=== PATIENT | male | born 1945 ===

== ENCOUNTER 2018-01-26 15:29 | Inpatient (IN) | payer MEDICARE ==
[2018-01-26] MEDS ORDERED: Labetalol 25mg/5ml Syringe IVP STA (15:42)
[2018-01-26] MEDS ORDERED: Sodium Chloride 0.9% 1,000 ML IV SCH (15:45)
--- NOTE | 2018-01-26 15:46 | C.PDOC ---
History Of Present Illness <NickAzul P - Last Filed: 01/26/18 18:23> <Azul Argueta J - Last Filed: 01/30/18 15:28> PGY-[address] Argueta. Patient is a 73 year old male with PMHx of DM, HTN, and HLD who presents to ED complaining of left sided weakness and slurred speech that began suddenly at 1: 30pm. Associated symptoms include dizziness that has since resolved. Denies change in vision, change in hearing, headache, chest pain, shortness of breath, nausea, vomiting, fever, chills, and urinary symptoms. Patient denies prior CVA. Patient takes daily aspirin. Denies anti-coagulant use. (Azul Romero) <Azul Romero P - Last Filed: 01/26/18 18:23> <Azul Argueta J - Last Filed: 01/30/18 15:28> Time Seen by Provider: 01/26/18 15:32 Chief Complaint (Nursing): Weakness/Neurological Deficit Past Medical History Family History: States: Unknown Family Hx <NickAzul Arredondo - Last Filed: 01/26/18 18:23> Vital Signs: Last Vital Signs Temp 98.3 F 01/30/18 12:00 Pulse 69 01/30/18 12:00 Resp 16 01/30/18 12:00 BP 171/98 H 01/30/18 11:20 Pulse Ox 99 01/30/18 08:00 Review Of Systems Constitutional: Negative for: Fever, Chills, Sweats Eyes: Negative for: Vision Change Cardiovascular: Negative for: Chest Pain, Palpitations, Orthopnea Respiratory: Negative for: Cough, Shortness of Breath Gastrointestinal: Negative for: Nausea, Vomiting, Abdominal Pain Genitourinary: Negative for: Dysuria, Frequency Neurological: Positive for: Weakness (LUE and LLE), Change in Speech (slurred speech), Dizziness. Negative for: Confusion, Seizures, Headache <Azul Romero - Last Filed: 01/26/18 18:23> Physical Exam - Physical Exam Appears: In Acute Distress (with L sided weakness) Skin: Normal Color, Warm, Dry, No Diaphoretic Head: Atraumatic, Normacephalic Tongue: Normal Appearing Throat: Normal Neck: Normal, Normal ROM Chest: Symmetrical Cardiovascular: Rhythm Regular, No Murmur Respiratory: Normal Breath Sounds, No Rales, No Rhonchi, No Wheezing Gastrointestinal/Abdominal: Bowel Sounds, Soft, No Tenderness, No Guarding, No Rebound Extremity: No Normal ROM (LUE and LLE weakness), No Tenderness, No Pedal Edema, Other (4.5cm x 3cm would to medial R ankle) Neurological/Psych: Oriented x3, No Normal Speech (dysarthria), Normal Cognition , No Normal Cranial Nerves (decreased sensation to trigeminal nerve distribution on L, otherwise normal), No Normal Motor (LUE and LLE weakness) <Azul Romero P - Last Filed: 01/26/18 18:23> ED Course And Treatment - Laboratory Results Result Diagrams: 01/26/18 15:43 01/26/18 15:43 <Azul Romero P - Last Filed: 01/26/18 18:23> - Laboratory Results Result Diagrams: 01/30/18 06:07 01/30/18 06:07 <Azul Argueta J - Last Filed: 01/30/18 15:28> NIHSS Stroke Scale 2 - Date/Time Evaluation Performed Date Performed: 01/26/18 Time Performed: 15:30 When Was NIHSS Performed: Baseline - How Severe is the Stroke Level of Consciousness: 0=Alert LOC to Questions: 0=Both comments correct LOC to commands: 0=Obeys both correctly Best Gaze: 0=Normal Visual: 0=No visual loss Facial: 2=Partial (lower face paralysis) Motor Arm - Left: 2=Falls before 10 sec Motor Arm - Right: 0=No drift Motor Leg - Left: 2=Falls before 5 sec Motor Leg - Right: 0=No drift Limb Ataxia: 0=Absent Sensory: 1=Mild to moderate loss Best Language: 0=No aphasia Dysarthia: 1=Mild to moderate slurring Extinction & Inattention (Neglect): 0=Normal, no object Score: 8 <Azul Romero P - Last Filed: 01/26/18 18:23> NIHSS Stroke Scale 3 - Date/Time Evaluation Performed Date Performed: 01/26/18 Time Performed: 17:30 When Was NIHSS Performed: Post tPA - How Severe is the Stroke Level of Consciousness: 0=Alert LOC to Questions: 0=Both comments correct LOC to commands: 0=Obeys both correctly Best Gaze: 0=Normal Visual: 0=No visual loss Facial: 1=Minor asymmetry Motor Arm - Left: 0=No drift Motor Arm - Right: 0=No drift Motor Leg - Left: 2=Falls before 5 sec Motor Leg - Right: 0=No drift Limb Ataxia: 0=Absent Sensory: 0=Normal Best Language: 0=No aphasia Dysarthia: 1=Mild to moderate slurring Extinction & Inattention (Neglect): 0=Normal, no object Score: 4 <Azul Romero P - Last Filed: 01/26/18 18:23> rTPA Inclusion/Exclusion - Refusal of Treatment Patient Refused Treatment: No - Inclusion Criteria for Altepase Patient is 18 years or Older: Yes The Clinical Diagnosis of Ischemic Stroke That is Causing a Potentially Disabling Neurological Deficit: Yes Time of Onset is Well Established to be Less Than 270 Minute Before Treatment Would Begin: Yes Risk/Benefit Discussed With Patient/Family Member Present: Yes - Exclusion Criteria for Altepase Uncontrolled Hypertension at Time of Treatment (Systolic BP above 185 or Diastolic BP above 110 mmHg): No <Azul Romero P - Last Filed: 01/26/18 18:23> - Exclusion Criteria for Altepase Uncontrolled Hypertension at Time of Treatment (Systolic BP above 185 or Diastolic BP above 110 mmHg): Yes Active Internal Bleeding: No Known Bleeding Diathesis Including but Not Limited to: Platelets Below 100,000/ mm,PTT Above 40 sec After Heparin Use, Current Use of Oral Anitcoagulant With INR Greater Than 1.7 or PT Greater Than 15 secs: No Evidence of an Intracranial Hemorrhage: No Evidence of Major Acute Infarct With Signs Greater Than 1/3 MCA Territory: No Suspicion of Subarachnoid Hemorrhage on Pretreatment Evaluation Even if CT Head Negative For Hemorrhage: No <Azul Argueta J - Last Filed: 01/30/18 15:28> Supervising Attending Note <Azul Romero P - Last Filed: 01/26/18 18:23> - Supervising Attending Note The Documented history was done by the: Physician Loft Worker Head, Attending Physician The documented physical exam was done by the: Physician Loft Worker Head, Attending Physician - Attestation: I have personally seen and examined this patient.: Yes I have fully participated in the care of the patient.: Yes I have reviewed all pertinent clinical information, including history, physical exam and plan: Yes <Azul Argueta - Last Filed: 01/30/18 15:28> - Notes: Notes:: DW Dr Alejandra on arrival. Recommended prep thrombolytics. Labetalol ordered to control BP. CT demonstrated no hemorrhage BP wnl and alteplase given after risk/benefits discussed and verbal consent given. 1 hour later: improvement of symptoms. Cardene initiated to [facility] BP control Per Dr Alejandra, no further vascular intervention by neurointerventionalist. DW Dr Calzada, Dr Buchanan, Dr Horne ICU. (Azul Argueta) Critical Care Time - Critical Care Note Total Time (in mins): 45 Documented critical care: time excludes all time spent performing seperately billable procedures. <Azul Argueta - Last Filed: 01/30/18 15:28> Medical Decision Making: Plan: Code Stroke called for patient CBC, CMP Lipid panel Hgb A1C Troponin PT/INR, PTT CT head without contrast CXR EKG IVF 15:[address] Alejandra, neurologist. 15:[address] Calzada, PMD. Dr. Buchanan will accept admission. 15:[address] w/o contrast: No intracranial hemorrhage or mass effect. (see full report) 16:16 Alteplase administered. (Azul Romero) Disposition Discussed With .: Abdoul Buchanan Doctor Will See Patient In The: Hospital - Disposition Disposition Time: 15:50 <Azul Romero - Last Filed: 01/26/18 18:23> Counseled Patient/Family Regarding: Studies Performed, Diagnosis - POA Present On Arrival: Falls Or Trauma (risk) Core Measure Indicators: Code Stroke <Azul Argueta - Last Filed: 01/30/18 15:28> - Disposition Disposition: HOSPITALIZED Condition: CRITICAL - Clinical Impression Clinical Impression: CVA (cerebral vascular accident)
[2018-01-26 15:48] LABS: BASO % 0.6 % (0.0-2.0); EOS % 0.5 % (0.0-4.0); HEMOGLOBIN 11.7 g/dL (12.0-18.0); LYMPH # 1.6 K/uL (1.0-4.3); LYMPH % 20.1 % (20.0-40.0); MEAN CELL VOLUME 74.2 fL (80.0-94.0); MEAN CORPUSCULAR HEMOGLOBIN 24.6 pg (27.0-31.0); MEAN CORPUSCULAR HGB CONC 33.1 g/dL (33.0-37.0); MEAN PLATELET VOLUME 8.4 fL (7.2-11.7); MONO # 0.8 K/uL (0.0-0.8); MONO % 10.1 % (0.0-10.0); NEUT # 5.4 K/uL (1.8-7.0); NEUT % 68.7 % (50.0-75.0); RBC 4.76 Mil/uL (4.40-5.90); RED CELL DISTRIBUTION WIDTH 15.7 % (11.5-14.5); WHITE BLOOD COUNT 7.8 K/uL (4.8-10.8)
--- NOTE | 2018-01-26 15:51 | C.PDOC ---
Time Seen by Provider: 01/26/18 15:32 Chief Complaint (Nursing): Weakness/Neurological Deficit Disposition - Disposition
[2018-01-26 15:54] VITALS: BMI 30.5
[2018-01-26] MEDS ORDERED: Iodixanol 320 mg/ml 150 ml Bottle IV ONE (15:56)
[2018-01-26 15:57] LABS: INR 1.3; PROTHROMBIN TIME 13.9 SECONDS (9.7-12.2)
--- NOTE | 2018-01-26 15:57 | CT ---
Date of service: 01/26/2018 PROCEDURE: CT HEAD WITHOUT CONTRAST. HISTORY: Code Stroke COMPARISON: NonePACs refer available. TECHNIQUE: Axial computed tomography images were obtained through the head/brain without intravenous contrast. Radiation dose: Total exam DLP = 1146 mGy-cm. This CT exam was performed using one or more of the following dose reduction techniques: Automated exposure control, adjustment of the mA and/or kV according to patient size, and/or use of iterative reconstruction technique. FINDINGS: HEMORRHAGE: No intracranial hemorrhage. BRAIN: No mass effect or edema. There is generalized cerebral atrophy. A few small hypodensities right temporal lobe lacunar infarcts with or without benign perivascular spaces are compatible with this. VENTRICLES: Unremarkable. No hydrocephalus. CALVARIUM: Unremarkable. PARANASAL SINUSES: Unremarkable as visualized. No significant inflammatory changes. MASTOID AIR CELLS: Unremarkable as visualized. No inflammatory changes. OTHER FINDINGS: None. IMPRESSION: No intracranial hemorrhage or mass effect. Mild cerebral atrophy. Probable minimal microvascular ischemic changes as above.
[2018-01-26] MEDS ORDERED: ALTEPLASE IVPB ONE (16:00)
[2018-01-26] MEDS ORDERED: WATER FOR INJECTION IVPB ONE (16:00)
[2018-01-26 16:04] LABS: ALB/GLOB RATIO 1.3 (1.0-2.1); ALBUMIN 4.5 g/dL (3.5-5.0); BLOOD UREA NITROGEN 19 mg/dL (9-20); CALCIUM 9.9 mg/dl (8.6-10.4); GFR NON-AFRICAN AMERICAN > 60; HDL CHOLESTEROL 37 mg/dL (30-70)
[2018-01-26] MEDS ORDERED: Sodium Chloride 0.9% 1,000 ML ONE (16:08)
[2018-01-26 16:14] LABS: LDL CHOLESTEROL 77 mg/dL (0-129)
[2018-01-26 16:16] LABS: ALT/SGPT 13 U/L (21-72); AST/SGOT 21 U/L (17-59)
--- NOTE | 2018-01-26 16:30 | CP.PCM.CON ---
<Martin Ramirez - Last Filed: 01/26/18 16:56> History of Present Illness - History of Present Illness History of Present Illness: Critical Care Consult Note: Left sided weakness and slurred speech 73 M with PMHx of DM, HTN, and HLD presents to ED complaining of left sided weakness and slurred speech. Patient states that his symptoms first started at 1 :30pm aprox less than 2 hours from arrival. The episode was witnessed and the patient was fine prior to his L weakness and slurr speach. Patient denies falling down or hitting his head. In the ED code stroke was called and patient went for stat CT head which did not show any intracranial hemorrhage or mass effect. Patient was with in the time frame for TPA which was administered in the ED. ICU consulted for close observation following TPA. 12 Point ROS limited 2/2 mild dysarthria Review of Systems - Review of Systems All systems: reviewed and no additional remarkable complaints except Past Patient History - Past Social History Smoking Status: x - CARDIAC Hx Cardiac Disorders: Yes Hx Hypertension: Yes - PSYCHIATRIC Hx Substance Use: No Meds Allergies/Adverse Reactions: Allergies Allergy/AdvReac Type Severity Reaction Status Date / Time No Known Allergies Allergy Verified 01/26/18 15:37 - Medications Medications: Current Medications Sodium Chloride (Sodium Chloride 0.9%) 1,000 mls @ 100 mls/hr IV .Q10H ASHLEE Alteplase, Recombinant 82 mg/ (Sterile Water) 82 mls @ 82 mls/hr IVPB ONCE ONE Stop: 01/26/18 16:59 Physical Exam - Constitutional Appears: No Acute Distress - Head Exam Head Exam: ATRAUMATIC, NORMOCEPHALIC - Eye Exam Eye Exam: EOMI, PERRL Pupil Exam: NORMAL ACCOMODATION - ENT Exam ENT Exam: Mucous Membranes Moist - Respiratory Exam Respiratory Exam: Clear to Auscultation Bilateral. absent: Rales, Wheezes - Cardiovascular Exam Cardiovascular Exam: REGULAR RHYTHM, RRR, +S1, +S2 - GI/Abdominal Exam GI & Abdominal Exam: Normal Bowel Sounds, Soft. absent: Tenderness - Extremities Exam Extremities exam: Negative for: calf tenderness, pedal edema Additional comments: L sided upper and lower ext diminished motor strength 3/5 bilaterally. Dysarthric speech. L sided facial droop - Neurological Exam Neurological exam: Alert, Oriented x3 Additional comments: L sided upper and lower ext diminished motor strength 3/5 bilaterally. Dysarthric speech. L sided facial droop - Psychiatric Exam Psychiatric exam: Normal Mood - Skin Skin Exam: Dry, Warm Results - Vital Signs Recent Vital Signs: Last Vital Signs Temp 98.9 F 01/26/18 15:32 Pulse 79 01/26/18 15:41 Resp 18 01/26/18 15:41 BP 197/114 H 01/26/18 15:41 Pulse Ox 99 01/26/18 15:32 - Labs Result Diagrams: 01/26/18 15:43 01/26/18 15:43 Labs: Laboratory Results - last 24 hr 01/26/18 01/26/18 01/26/18 15:30 15:43 15:43 WBC 7.8 RBC 4.76 Hgb 11.7 L Hct 35.3 MCV 74.2 L MCH 24.6 L MCHC 33.1 RDW 15.7 H Plt Count 302 MPV 8.4 Neut % (Auto) 68.7 Lymph % (Auto) 20.1 [place] % (Auto) 10.1 H Eos % (Auto) 0.5 Baso % (Auto) 0.6 Neut # (Auto) 5.4 Lymph # (Auto) 1.6 [place] # (Auto) 0.8 Eos # (Auto) 0.0 Baso # (Auto) 0.0 PT 13.9 H INR 1.3 APTT 41 H Sodium Potassium Chloride Carbon Dioxide Anion Gap BUN Creatinine Est GFR ( Amer) Est GFR (Non-Af Amer) POC Glucose (mg/dL) 103 Random Glucose Hemoglobin A1c Calcium Total Bilirubin AST ALT Alkaline Phosphatase Troponin I Total Protein Albumin Globulin Albumin/Globulin Ratio Triglycerides Cholesterol LDL Cholesterol Direct HDL Cholesterol Blood Type 01/26/18 01/26/18 01/26/18 15:43 15:43 15:43 WBC RBC Hgb Hct MCV MCH MCHC RDW Plt Count MPV Neut % (Auto) Lymph % (Auto) [place] % (Auto) Eos % (Auto) Baso % (Auto) Neut # (Auto) Lymph # (Auto) [place] # (Auto) Eos # (Auto) Baso # (Auto) PT INR APTT Sodium 140 Potassium 4.1 Chloride 104 Carbon Dioxide 22 Anion Gap 18 BUN 19 Creatinine 0.8 Est GFR ( Amer) > 60 Est GFR (Non-Af Amer) > 60 POC Glucose (mg/dL) Random Glucose 117 H Hemoglobin A1c 5.7 Calcium 9.9 Total Bilirubin 0.5 AST 21 ALT 13 L Alkaline Phosphatase 116 Troponin I 0.0140 Total Protein 8.1 Albumin 4.5 Globulin 3.6 Albumin/Globulin Ratio 1.3 Triglycerides 84 Cholesterol 140 LDL Cholesterol Direct 77 HDL Cholesterol 37 Blood Type O POSITIVE Assessment & Plan - Assessment and Plan (Free Text) Assessment: 73 M with PMHx of DM, HTN, and HLD presents to ED complaining of left sided weakness and slurred speech. Code stroke called and patient was candidate for TPA. ICU consulted for close observation following TPA. Neuro: - Neuro check Q2H - CT head showed no acute hemorrhage - CT head and neck pending official read - will follow up regarding if patient is candidate for thrombectomy - Repeat Head CT in the morning - F/u neurology recs - NIHS as needed - PT/OT Pulm: - Stable - Nasal cannula as needed CV: - Maintain MAP > 65 - maintain BP <180/105 for post TPA - Labatolol / Cardene as needed to maintain BP <180/105 - Cont to monitor GI: - NPO - ppx with pepcid - Swallow evaluation Heme: - Monitor H/H - No active bleeding at this time - Cont to monitor Renal: - Monitor I and O - Replete electrolytes as needed ID: - Afebrile and no leukocytosis - No sign of infection - Cont to monitor off of abx Endo: - maintain blood sugars 140-180 GI/DVT ppx Case and plan was reviewed and discussed in detail with Dr Horne. <Zeyad Horne - Last Filed: 01/26/18 18:49> Meds - Medications Medications: Current Medications Famotidine (Pepcid) 20 mg PO BID ASHLEE Sodium Chloride (Sodium Chloride 0.9%) 1,000 mls @ 100 mls/hr IV .Q10H ASHLEE Nicardipine HCl 25 mg/ Sodium (Chloride) 250 mls @ 50 mls/hr IV .Q5H STA; 5 MG/ HR PRN Reason: Protocol Stop: 01/26/18 21:46 Last Titration: 01/26/18 17:55 Dose: 5 mg/hr, 50 mls/hr Results - Vital Signs Recent Vital Signs: Last Vital Signs Temp 98.9 F 01/26/18 15:32 Pulse 71 01/26/18 17:55 Resp 18 01/26/18 17:55 BP 185/101 H 01/26/18 17:55 Pulse Ox 99 01/26/18 17:55 - Labs Result Diagrams: 01/26/18 15:43 01/26/18 15:43 Labs: Laboratory Results - last 24 hr 01/26/18 01/26/18 01/26/18 15:30 15:43 15:43 WBC 7.8 RBC 4.76 Hgb 11.7 L Hct 35.3 MCV 74.2 L MCH 24.6 L MCHC 33.1 RDW 15.7 H Plt Count 302 MPV 8.4 Neut % (Auto) 68.7 Lymph % (Auto) 20.1 [place] % (Auto) 10.1 H Eos % (Auto) 0.5 Baso % (Auto) 0.6 Neut # (Auto) 5.4 Lymph # (Auto) 1.6 [place] # (Auto) 0.8 Eos # (Auto) 0.0 Baso # (Auto) 0.0 PT 13.9 H INR 1.3 APTT 41 H Sodium Potassium Chloride Carbon Dioxide Anion Gap BUN Creatinine Est GFR ( Amer) Est GFR (Non-Af Amer) POC Glucose (mg/dL) 103 Random Glucose Hemoglobin A1c Calcium Total Bilirubin AST ALT Alkaline Phosphatase Troponin I Total Protein Albumin Globulin Albumin/Globulin Ratio Triglycerides Cholesterol LDL Cholesterol Direct HDL Cholesterol Blood Type Antibody Screen 01/26/18 01/26/18 01/26/18 15:43 15:43 15:43 WBC RBC Hgb Hct MCV MCH MCHC RDW Plt Count MPV Neut % (Auto) Lymph % (Auto) [place] % (Auto) Eos % (Auto) Baso % (Auto) Neut # (Auto) Lymph # (Auto) [place] # (Auto) Eos # (Auto) Baso # (Auto) PT INR APTT Sodium 140 Potassium 4.1 Chloride 104 Carbon Dioxide 22 Anion Gap 18 BUN 19 Creatinine 0.8 Est GFR ( Amer) > 60 Est GFR (Non-Af Amer) > 60 POC Glucose (mg/dL) Random Glucose 117 H Hemoglobin A1c 5.7 Calcium 9.9 Total Bilirubin 0.5 AST 21 ALT 13 L Alkaline Phosphatase 116 Troponin I 0.0140 Total Protein 8.1 Albumin 4.5 Globulin 3.6 Albumin/Globulin Ratio 1.3 Triglycerides 84 Cholesterol 140 LDL Cholesterol Direct 77 HDL Cholesterol 37 Blood Type O POSITIVE Antibody Screen Negative Attending/Attestation - Attestation I have personally seen and examined this patient.: Yes I have fully participated in the care of the patient.: Yes I have reviewed all pertinent clinical information: Yes Notes (Text): 01/26/18 18:17 I have seen and examined the patient. Medical records, lab studies, and imaging were reviewed by me and a management plan was formulated on multidisciplinary rounds with resident Dr. Ramirez. I agree with their documented assessment and plan. Patient received tPA at ~1616. Admitting to ICU for neuro checks. Continue cardene drip to maintain BP <180/105. Critical Care Time 35 minutes. The documented time is cumulative and includes review of patient data/exams/labs /chart review and examination of the patient on rounds and throughout the day; time is exclusive of any procedures or teaching time.
[2018-01-26] MEDS ORDERED: niCARdipine IV 25 MG in Sodium Chloride 0.9% 240 ML IV STA (16:47)
[2018-01-26] MEDS ORDERED: niCARdipine IV 25 MG in Sodium Chloride 0.9% 240 ML IV SCH (17:00)
--- NOTE | 2018-01-26 18:38 | RAD ---
HISTORY: Code Stroke COMPARISON: None available. TECHNIQUE: Chest, one view. FINDINGS: Examination limited by habitus. LUNGS: Mild pulmonary venous congestion. No focal consolidation. Please note that chest x-ray has limited sensitivity for the detection of pulmonary masses. PLEURA: No significant pleural effusion identified. No definite pneumothorax . CARDIOVASCULAR: Enlargement of the cardiomediastinal silhouette. Atherosclerotic calcifications of the aorta. OSSEOUS STRUCTURES: Degenerative changes. VISUALIZED UPPER ABDOMEN: Unremarkable. OTHER FINDINGS: None. IMPRESSION: Enlargement of the cardiomediastinal silhouette. Mild pulmonary venous congestion.
[2018-01-26] MEDS: Sodium Chloride 0.9% 1,000 ML IV SCH (18:48)
--- NOTE | 2018-01-26 20:29 | CP.PCM.HP ---
History of Present Illness - History of Present Illness History of Present Illness: Chief complaint: Left-sided weakness, slurred speech. HPI: 73-year-old male with history of hypertension diabetes hyperlipidemia and also chronic right leg ulcer came to the emergency room with sudden onset of left- sided weakness and slurred speech. According to the family patient started having symptoms around 1:30 PM, 2 hours prior to the arrival to the emergency room. Code stroke was called in the emergency room, and immediately TPA was given, currently patient post TPA management in the intensive care unit. Patient is now able to speak. He is still having some minimal weakness in the left side. Complaining of no pain. Denies any chest pain shortness of breath or headache. Past medical history: Hypertension chronic fairly controlled Hyperlipidemia on medications. Diabetes and also diabetic retinopathy Chronic right leg ulcer, being managed by the PMD, awaiting for surgical evaluation Allergies no known drug allergy Personal history: , No alcohol now. Patient is a non-smoker Family history significant for CAD and hypertension Review of system: Patient is having no headache. Diabetic retinopathy No chest pain or shortness of breath. No nausea no vomiting. Left-sided weakness noted On examination: Blood pressure was noted to be elevated Chest bilateral good air entry Regular heart sound noted Nontender abdomen. Extremities no pedal edema Patient has a chronic right leg nonhealing ulcer noted Assessment: Patient is a 74-year-old male with a history of chronic diabetes, hypertension, diabetic related complication including neuropathy, retinopathy. Patient admitted with acute CVA involving the left side of the body. Associated with the slurred speech. Status post DTPA. Neurological watch now. Plan recommendation: Patient will be monitored closely in the intensive care unit for. Neurological watch. Swallow evaluation. We will get a cardiology, vascular evaluation for the ongoing illness. Patient will be receiving his antihypertensives, antiplatelets as well as anti- lipidemia management. Physical therapy. We will continue the current treatment. DVT and GI prophylaxis and will will follow-up the patient Present on Admission - Present on Admission Any Indicators Present on Admission: No History of DVT/PE: No History of Uncontrolled Diabetes: No Urinary Catheter: No Decubitus Ulcer Present: No Past Patient History - Past Medical History & Family History Past Medical History?: Yes - Past Social History Smoking Status: Never Smoked - CARDIAC Hx Cardiac Disorders: Yes Hx Hypertension: Yes - PSYCHIATRIC Hx Substance Use: No Meds Allergies/Adverse Reactions: Allergies Allergy/AdvReac Type Severity Reaction Status Date / Time No Known Allergies Allergy Verified 01/26/18 15:37 Results - Vital Signs Recent Vital Signs: Last Vital Signs Temp 97.2 F L 01/26/18 19:15 Pulse 96 H 01/26/18 19:40 Resp 14 01/26/18 19:40 BP 173/105 H 01/26/18 19:30 Pulse Ox 100 01/26/18 19:40 - Labs Result Diagrams: 01/27/18 06:31 01/27/18 06:31 Labs: Laboratory Results - last 24 hr 01/26/18 01/26/18 01/26/18 15:30 15:43 15:43 WBC 7.8 RBC 4.76 Hgb 11.7 L Hct 35.3 MCV 74.2 L MCH 24.6 L MCHC 33.1 RDW 15.7 H Plt Count 302 MPV 8.4 Neut % (Auto) 68.7 Lymph % (Auto) 20.1 [place] % (Auto) 10.1 H Eos % (Auto) 0.5 Baso % (Auto) 0.6 Neut # (Auto) 5.4 Lymph # (Auto) 1.6 [place] # (Auto) 0.8 Eos # (Auto) 0.0 Baso # (Auto) 0.0 PT 13.9 H INR 1.3 APTT 41 H Sodium Potassium Chloride Carbon Dioxide Anion Gap BUN Creatinine Est GFR ( Amer) Est GFR (Non-Af Amer) POC Glucose (mg/dL) 103 Random Glucose Hemoglobin A1c Calcium Total Bilirubin AST ALT Alkaline Phosphatase Troponin I Total Protein Albumin Globulin Albumin/Globulin Ratio Triglycerides Cholesterol LDL Cholesterol Direct HDL Cholesterol Blood Type Antibody Screen 01/26/18 01/26/18 01/26/18 15:43 15:43 15:43 WBC RBC Hgb Hct MCV MCH MCHC RDW Plt Count MPV Neut % (Auto) Lymph % (Auto) [place] % (Auto) Eos % (Auto) Baso % (Auto) Neut # (Auto) Lymph # (Auto) [place] # (Auto) Eos # (Auto) Baso # (Auto) PT INR APTT Sodium 140 Potassium 4.1 Chloride 104 Carbon Dioxide 22 Anion Gap 18 BUN 19 Creatinine 0.8 Est GFR ( Amer) > 60 Est GFR (Non-Af Amer) > 60 POC Glucose (mg/dL) Random Glucose 117 H Hemoglobin A1c 5.7 Calcium 9.9 Total Bilirubin 0.5 AST 21 ALT 13 L Alkaline Phosphatase 116 Troponin I 0.0140 Total Protein 8.1 Albumin 4.5 Globulin 3.6 Albumin/Globulin Ratio 1.3 Triglycerides 84 Cholesterol 140 LDL Cholesterol Direct 77 HDL Cholesterol 37 Blood Type O POSITIVE Antibody Screen Negative
[2018-01-26] MEDS: niCARdipine IV 25 MG in Sodium Chloride 0.9% 240 ML IV PRN (23:04)
--- NOTE | 2018-01-27 01:18 | CP.PCM.CON ---
History of Present Illness - History of Present Illness History of Present Illness: 73 yr old male who has a pmh of DM, HTN, and HLD who presents to ED complaining of left sided weakness and slurred speech that began suddenly at 1: 30pm. Associated symptoms include dizziness that has since resolved. Denies change in vision, change in hearing, headache, chest pain, shortness of breath, nausea, vomiting, fever, chills, and urinary symptoms. Patient denies prior CVA. Patient takes daily aspirin. Denies anti-coagulant use. Code stroke was called and patient was assessed shortly thereafter by myself and residents. He was found to have an NIHSS of 7, with mild aphasia, left upper limbweakness at 3 /5, purchasing internship of 2/5, left sided neglect, left lower limb weakness at 4/5. CT scan was done and did not show an acute stroke, and labs were normal. Based on time of onset, patient was determined to be a TPA candidate. He was hypertensive at about 200/110, and he was given several doses of labetalol. TPA was given at 4:15, and patient improved to the point where he was able to give me a 4-/5 purchasing internship on his left hand and lift his arm without significant drift. In addition, his left sided facial droop improved significantly. He was admitted to the ICU for monitoring. ROS; unable to obtain. NIHSS: 7 On exam: awake, alert, not oriented. PERRL. Can name simple objects but with dysarthria. Left sided facial droop. LEft arm: 3/5, purchasing internship: 2/5, left leg 4/5. Both arm and leg on left side show drift. There is sensory extinction of the left side and some neglect. Right arm and leg are strong. Sensory exam is not accurate. Dtr: +3 all extremities, Toes downgoing. no clonus. Past Patient History - Past Medical History & Family History Past Medical History?: Yes - Past Social History Smoking Status: Never Smoked - CARDIAC Hx Cardiac Disorders: Yes Hx Hypertension: Yes - MUSCULOSKELETAL/RHEUMATOLOGICAL Hx Falls: Yes - PSYCHIATRIC Hx Substance Use: No Meds Allergies/Adverse Reactions: Allergies Allergy/AdvReac Type Severity Reaction Status Date / Time No Known Allergies Allergy Verified 01/26/18 15:37 - Medications Medications: Current Medications Famotidine (Pepcid) 20 mg PO BID ASHLEE Last Admin: 01/26/18 18:34 Dose: Not Given Sodium Chloride (Sodium Chloride 0.9%) 1,000 mls @ 75 mls/hr IV .[id number] [facility] Last Admin: 01/26/18 18:48 Dose: 75 mls/hr Nicardipine HCl 25 mg/ Sodium (Chloride) 250 mls @ 50 mls/hr IV .Q5H PRN; 5 MG/ HR PRN Reason: Protocol Last Titration: 01/27/18 00:20 Dose: 5 mg/hr, 50 mls/hr Rosuvastatin Calcium (Crestor) 10 mg PO HS [facility] Last Admin: 01/26/18 21:06 Dose: Not Given Results - Vital Signs Recent Vital Signs: Last Vital Signs Temp 97.7 F 01/26/18 22:15 Pulse 75 01/27/18 00:26 Resp 19 01/27/18 00:26 BP 153/88 H 01/27/18 00:26 Pulse Ox 98 01/27/18 00:26 - Labs Result Diagrams: 01/26/18 15:43 01/26/18 15:43 Labs: Laboratory Results - last 24 hr 01/26/18 01/26/18 01/26/18 15:30 15:43 15:43 WBC 7.8 RBC 4.76 Hgb 11.7 L Hct 35.3 MCV 74.2 L MCH 24.6 L MCHC 33.1 RDW 15.7 H Plt Count 302 MPV 8.4 Neut % (Auto) 68.7 Lymph % (Auto) 20.1 [place] % (Auto) 10.1 H Eos % (Auto) 0.5 Baso % (Auto) 0.6 Neut # (Auto) 5.4 Lymph # (Auto) 1.6 [place] # (Auto) 0.8 Eos # (Auto) 0.0 Baso # (Auto) 0.0 PT 13.9 H INR 1.3 APTT 41 H Sodium Potassium Chloride Carbon Dioxide Anion Gap BUN Creatinine Est GFR ( Amer) Est GFR (Non-Af Amer) POC Glucose (mg/dL) 103 Random Glucose Hemoglobin A1c Calcium Total Bilirubin AST ALT Alkaline Phosphatase Troponin I Total Protein Albumin Globulin Albumin/Globulin Ratio Triglycerides Cholesterol LDL Cholesterol Direct HDL Cholesterol Blood Type Antibody Screen 01/26/18 01/26/18 01/26/18 15:43 15:43 15:43 WBC RBC Hgb Hct MCV MCH MCHC RDW Plt Count MPV Neut % (Auto) Lymph % (Auto) [place] % (Auto) Eos % (Auto) Baso % (Auto) Neut # (Auto) Lymph # (Auto) [place] # (Auto) Eos # (Auto) Baso # (Auto) PT INR APTT Sodium 140 Potassium 4.1 Chloride 104 Carbon Dioxide 22 Anion Gap 18 BUN 19 Creatinine 0.8 Est GFR ( Amer) > 60 Est GFR (Non-Af Amer) > 60 POC Glucose (mg/dL) Random Glucose 117 H Hemoglobin A1c 5.7 Calcium 9.9 Total Bilirubin 0.5 AST 21 ALT 13 L Alkaline Phosphatase 116 Troponin I 0.0140 Total Protein 8.1 Albumin 4.5 Globulin 3.6 Albumin/Globulin Ratio 1.3 Triglycerides 84 Cholesterol 140 LDL Cholesterol Direct 77 HDL Cholesterol 37 Blood Type O POSITIVE Antibody Screen Negative 01/26/18 23:58 WBC RBC Hgb Hct MCV MCH MCHC RDW Plt Count MPV Neut % (Auto) Lymph % (Auto) [place] % (Auto) Eos % (Auto) Baso % (Auto) Neut # (Auto) Lymph # (Auto) [place] # (Auto) Eos # (Auto) Baso # (Auto) PT INR APTT Sodium Potassium Chloride Carbon Dioxide Anion Gap BUN Creatinine Est GFR ( Amer) Est GFR (Non-Af Amer) POC Glucose (mg/dL) 78 Random Glucose Hemoglobin A1c Calcium Total Bilirubin AST ALT Alkaline Phosphatase Troponin I Total Protein Albumin Globulin Albumin/Globulin Ratio Triglycerides Cholesterol LDL Cholesterol Direct HDL Cholesterol Blood Type Antibody Screen Assessment & Plan - Assessment and Plan (Free Text) Assessment: CTA head: shows 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 Echo: pending. CT head: no acute stroke. A/p: 73 yr old s/p TPA at 4:16 pm who is now stable and admitted to the ICu for monitoring. Plan: 1. keep blood pressure systolic 150-[address] head in am. 3. MRI brain without contrast 4. no anticoagulants for 72 hours 5. DVT prophylaxis 6. PT/St/OT 7. Lipid profile and start statin. 8. no neurointervention at this point,. ' 9. dysphagia evaluation . 'THank you for consulting neurology Dr. Manuel dorantes
[2018-01-27] MEDS: niCARdipine IV 25 MG in Sodium Chloride 0.9% 240 ML IV PRN ×2 (04:49→12:31)
[2018-01-27 06:34] LABS: BASO # 0.1 K/uL (0.0-0.2); BASO % 1.1 % (0.0-2.0); EOS % 0.8 % (0.0-4.0); HEMOGLOBIN 11.4 g/dL (12.0-18.0); LYMPH # 1.4 K/uL (1.0-4.3); LYMPH % 22.8 % (20.0-40.0); MEAN CELL VOLUME 74.1 fL (80.0-94.0); MEAN CORPUSCULAR HGB CONC 33.7 g/dL (33.0-37.0); MEAN PLATELET VOLUME 8.9 fL (7.2-11.7); MONO # 0.6 K/uL (0.0-0.8); MONO % 9.8 % (0.0-10.0); NEUT # 4.1 K/uL (1.8-7.0); NEUT % 65.5 % (50.0-75.0); RBC 4.58 Mil/uL (4.40-5.90); RED CELL DISTRIBUTION WIDTH 15.8 % (11.5-14.5); WHITE BLOOD COUNT 6.2 K/uL (4.8-10.8)
[2018-01-27 06:50] LABS: ALB/GLOB RATIO 1.2 (1.0-2.1); ALBUMIN 3.9 g/dL (3.5-5.0); ALT/SGPT 16 U/L (21-72); AST/SGOT 14 U/L (17-59); BLOOD UREA NITROGEN 13 mg/dL (9-20); CALCIUM 9.1 mg/dl (8.6-10.4); GFR NON-AFRICAN AMERICAN > 60
[2018-01-27] MEDS: Sodium Chloride 0.9% 1,000 ML IV SCH ×2 (08:00→19:30)
[2018-01-27] MEDS: Magnesium Sulfate 1 gm in D5W 1 GM/100 ML BAG IVPB SCH ×2 (08:00→08:50)
--- NOTE | 2018-01-27 08:44 | CP.CCUPN ---
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 Original Note: <Nury Ji - Last Filed: 01/27/18 15:54> CCU Subjective - Physician Review Subjective (Free Text): 01/27/18 15:12 ICU Progress note Patient seen and examined at bedside at 8:15 this morning, when patient was able to move right and left upper and lower extremities. Patient then developed marked weakness in left upper extremity and left lower extremity and had to be helped up from chair into the bed. CCU Objective - Vital Signs / Intake & Output Vital Signs (Last 4 hours): Vital Signs Temp Pulse Resp BP Pulse Ox 01/27/18 07:03 68 20 145/85 95 01/27/18 07:00 70 19 95 01/27/18 06:50 69 19 94 L 01/27/18 06:40 68 19 97 01/27/18 06:33 76 22 146/80 98 01/27/18 06:30 73 21 98 01/27/18 06:20 74 17 97 01/27/18 06:15 97.9 F 74 19 128/84 96 01/27/18 06:10 69 16 98 01/27/18 06:03 68 17 128/84 98 01/27/18 05:33 70 17 149/84 100 01/27/18 05:15 81 19 145/87 99 01/27/18 05:03 81 19 145/87 96 Intake and Output (Last 8hrs): Intake & Output 01/26/18 01/27/18 01/27/18 22:59 06:59 14:59 Intake Total 425 1270 Output Total 550 650 Balance -125 620 Weight 195 lb 196 lb 3.2 oz Intake: IV 0 300 Intake, IV Amount 425 970 Right Antecubital 200 370 Right Antecubital Y-Port 225 600 Oral 0 0 Output: Urine 550 650 Urine, Voided 550 650 Other: Voiding Method Urinal # Voids Urine, Voided 1 0 # Bowel Movements 0 0 - Physical Exam Head: Positive for: Atraumatic Pupils: Positive for: PERRL Upper Extremity: Positive for: NORMAL PULSES Lower Extremity: Positive for: NORMAL PULSES, Other (Venous stasis changes on lower extremities bilaterally) Neurological: Positive for: Other (Left sided facial droop. 1/5 left upper extremity. 1/5 left lower extremity. 2/5 nurse aide evaluator strength of left hand, compared to right. 5/5 strength in right upper and lower extremity. ) Skin: Positive for: Warm, Dry, Other (Wound on anterior right lower extremity. ) - Medications Active Medications: Active Medications Generic Name Dose Route Start Last Admin Trade Name Freq PRN Reason Stop Dose Admin Famotidine 20 mg 01/26/18 18:00 01/26/18 18:34 Pepcid PO Not Given BID ASHLEE Sodium Chloride 1,000 mls @ 75 mls/hr 01/26/18 18:38 01/26/18 18:48 Sodium Chloride 0.9% IV 75 mls/hr .[id number] ASHLEE Administration Nicardipine HCl 25 mg/ Sodium 250 mls @ 50 mls/hr 01/26/18 22:30 01/27/18 06: 30 Chloride IV 3 mg/hr .Q5H PRN 30 mls/hr Protocol Titration 5 MG/HR Magnesium Sulfate/Dextrose 1 gm in 100 mls @ 300 mls/hr 01/27/18 07:45 Magnesium Sulfate 1 Gm/100 Ml D5w IVPB 01/27/18 08:34 Q30M ASHLEE Potassium Chloride 20 meq in 100 mls @ 50 mls/hr 01/27/18 07:37 Potassium Chloride 20 Meq/100 Ml IVPB 01/27/18 09:36 ONCE ONE Rosuvastatin Calcium 10 mg 01/26/18 22:00 01/26/18 21:06 Crestor PO Not Given HS ASHLEE - Patient Studies Lab Studies: Lab Studies 01/27/18 01/27/18 01/27/18 Range/Units 06:31 06:31 06:24 WBC 6.2 (4.8-10.8) K/uL RBC 4.58 (4.40-5.90) Mil/uL Hgb 11.4 L (12.0-18.0) g/dL Hct 34.0 L (35.0-51.0) % MCV 74.1 L (80.0-94.0) fL MCH 25.0 L (27.0-31.0) pg MCHC 33.7 (33.0-37.0) g/dL RDW 15.8 H (11.5-14.5) % Plt Count 266 (130-400) K/uL MPV 8.9 (7.2-11.7) fL Neut % (Auto) 65.5 (50.0-75.0) % Lymph % (Auto) 22.8 (20.0-40.0) % [place] % (Auto) 9.8 (0.0-10.0) % Eos % (Auto) 0.8 (0.0-4.0) % Baso % (Auto) 1.1 (0.0-2.0) % Neut # (Auto) 4.1 (1.8-7.0) K/uL Lymph # (Auto) 1.4 (1.0-4.3) K/uL [place] # (Auto) 0.6 (0.0-0.8) K/uL Eos # (Auto) 0.0 (0.0-0.7) K/uL Baso # (Auto) 0.1 (0.0-0.2) K/uL PT (9.7-12.2) SECONDS INR APTT (21-34) SECONDS Sodium 141 (132-148) mmol/L Potassium 3.5 L (3.6-5.2) mmol/L Chloride 104 (98-107) mmol/L Carbon Dioxide 26 (22-30) mmol/L Anion Gap 15 (10-20) BUN 13 (9-20) mg/dL Creatinine 0.7 L (0.8-1.5) mg/dL Est GFR ( Amer) > 60 Est GFR (Non-Af Amer) > 60 POC Glucose (mg/dL) 90 (65-110) mg/dL Random Glucose 98 (75-110) mg/dL Hemoglobin A1c (4.2-6.5) % Calcium 9.1 (8.6-10.4) mg/dl Phosphorus 3.8 (2.5-4.5) mg/dL Magnesium 1.4 L (1.6-2.3) mg/dL Total Bilirubin 0.6 (0.2-1.3) mg/dL AST 14 L D (17-59) U/L ALT 16 L D (21-72) U/L Alkaline Phosphatase 103 (38-126) U/L Troponin I (0.00-0.120) ng/mL Total Protein 7.3 (6.3-8.3) g/dL Albumin 3.9 (3.5-5.0) g/dL Globulin 3.4 (2.2-3.9) gm/dL Albumin/Globulin Ratio 1.2 (1.0-2.1) Triglycerides (0-149) mg/dL Cholesterol (0-199) mg/dL LDL Cholesterol Direct (0-129) mg/dL HDL Cholesterol (30-70) mg/dL Blood Type Antibody Screen 01/26/18 01/26/18 01/26/18 Range/Units 23:58 15:43 15:43 WBC (4.8-10.8) K/uL RBC (4.40-5.90) Mil/uL Hgb (12.0-18.0) g/dL Hct (35.0-51.0) % MCV (80.0-94.0) fL MCH (27.0-31.0) pg MCHC (33.0-37.0) g/dL RDW (11.5-14.5) % Plt Count (130-400) K/uL MPV (7.2-11.7) fL Neut % (Auto) (50.0-75.0) % Lymph % (Auto) (20.0-40.0) % [place] % (Auto) (0.0-10.0) % Eos % (Auto) (0.0-4.0) % Baso % (Auto) (0.0-2.0) % Neut # (Auto) (1.8-7.0) K/uL Lymph # (Auto) (1.0-4.3) K/uL [place] # (Auto) (0.0-0.8) K/uL Eos # (Auto) (0.0-0.7) K/uL Baso # (Auto) (0.0-0.2) K/uL PT (9.7-12.2) SECONDS INR APTT (21-34) SECONDS Sodium (132-148) mmol/L Potassium (3.6-5.2) mmol/L Chloride (98-107) mmol/L Carbon Dioxide (22-30) mmol/L Anion Gap (10-20) BUN (9-20) mg/dL Creatinine (0.8-1.5) mg/dL Est GFR ( Amer) Est GFR (Non-Af Amer) POC Glucose (mg/dL) 78 (65-110) mg/dL Random Glucose (75-110) mg/dL Hemoglobin A1c 5.7 (4.2-6.5) % Calcium (8.6-10.4) mg/dl Phosphorus (2.5-4.5) mg/dL Magnesium (1.6-2.3) mg/dL Total Bilirubin (0.2-1.3) mg/dL AST (17-59) U/L ALT (21-72) U/L Alkaline Phosphatase (38-126) U/L Troponin I (0.00-0.120) ng/mL Total Protein (6.3-8.3) g/dL Albumin (3.5-5.0) g/dL Globulin (2.2-3.9) gm/dL Albumin/Globulin Ratio (1.0-2.1) Triglycerides (0-149) mg/dL Cholesterol (0-199) mg/dL LDL Cholesterol Direct (0-129) mg/dL HDL Cholesterol (30-70) mg/dL Blood Type O POSITIVE Antibody Screen Negative 01/26/18 01/26/18 01/26/18 Range/Units 15:43 15:43 15:43 WBC 7.8 (4.8-10.8) K/uL RBC 4.76 (4.40-5.90) Mil/uL Hgb 11.7 L (12.0-18.0) g/dL Hct 35.3 (35.0-51.0) % MCV 74.2 L (80.0-94.0) fL MCH 24.6 L (27.0-31.0) pg MCHC 33.1 (33.0-37.0) g/dL RDW 15.7 H (11.5-14.5) % Plt Count 302 (130-400) K/uL MPV 8.4 (7.2-11.7) fL Neut % (Auto) 68.7 (50.0-75.0) % Lymph % (Auto) 20.1 (20.0-40.0) % [place] % (Auto) 10.1 H (0.0-10.0) % Eos % (Auto) 0.5 (0.0-4.0) % Baso % (Auto) 0.6 (0.0-2.0) % Neut # (Auto) 5.4 (1.8-7.0) K/uL Lymph # (Auto) 1.6 (1.0-4.3) K/uL [place] # (Auto) 0.8 (0.0-0.8) K/uL Eos # (Auto) 0.0 (0.0-0.7) K/uL Baso # (Auto) 0.0 (0.0-0.2) K/uL PT 13.9 H (9.7-12.2) SECONDS INR 1.3 APTT 41 H (21-34) SECONDS Sodium 140 (132-148) mmol/L Potassium 4.1 (3.6-5.2) mmol/L Chloride 104 (98-107) mmol/L Carbon Dioxide 22 (22-30) mmol/L Anion Gap 18 (10-20) BUN 19 (9-20) mg/dL Creatinine 0.8 (0.8-1.5) mg/dL Est GFR ( Amer) > 60 Est GFR (Non-Af Amer) > 60 POC Glucose (mg/dL) (65-110) mg/dL Random Glucose 117 H (75-110) mg/dL Hemoglobin A1c (4.2-6.5) % Calcium 9.9 (8.6-10.4) mg/dl Phosphorus (2.5-4.5) mg/dL Magnesium (1.6-2.3) mg/dL Total Bilirubin 0.5 (0.2-1.3) mg/dL AST 21 (17-59) U/L ALT 13 L (21-72) U/L Alkaline Phosphatase 116 (38-126) U/L Troponin I 0.0140 (0.00-0.120) ng/mL Total Protein 8.1 (6.3-8.3) g/dL Albumin 4.5 (3.5-5.0) g/dL Globulin 3.6 (2.2-3.9) gm/dL Albumin/Globulin Ratio 1.3 (1.0-2.1) Triglycerides 84 (0-149) mg/dL Cholesterol 140 (0-199) mg/dL LDL Cholesterol Direct 77 (0-129) mg/dL HDL Cholesterol 37 (30-70) mg/dL Blood Type Antibody Screen 01/26/18 Range/Units 15:30 WBC (4.8-10.8) K/uL RBC (4.40-5.90) Mil/uL Hgb (12.0-18.0) g/dL Hct (35.0-51.0) % MCV (80.0-94.0) fL MCH (27.0-31.0) pg MCHC (33.0-37.0) g/dL RDW (11.5-14.5) % Plt Count (130-400) K/uL MPV (7.2-11.7) fL Neut % (Auto) (50.0-75.0) % Lymph % (Auto) (20.0-40.0) % [place] % (Auto) (0.0-10.0) % Eos % (Auto) (0.0-4.0) % Baso % (Auto) (0.0-2.0) % Neut # (Auto) (1.8-7.0) K/uL Lymph # (Auto) (1.0-4.3) K/uL [place] # (Auto) (0.0-0.8) K/uL Eos # (Auto) (0.0-0.7) K/uL Baso # (Auto) (0.0-0.2) K/uL PT (9.7-12.2) SECONDS INR APTT (21-34) SECONDS Sodium (132-148) mmol/L Potassium (3.6-5.2) mmol/L Chloride (98-107) mmol/L Carbon Dioxide (22-30) mmol/L Anion Gap (10-20) BUN (9-20) mg/dL Creatinine (0.8-1.5) mg/dL Est GFR ( Amer) Est GFR (Non-Af Amer) POC Glucose (mg/dL) 103 (65-110) mg/dL Random Glucose (75-110) mg/dL Hemoglobin A1c (4.2-6.5) % Calcium (8.6-10.4) mg/dl Phosphorus (2.5-4.5) mg/dL Magnesium (1.6-2.3) mg/dL Total Bilirubin (0.2-1.3) mg/dL AST (17-59) U/L ALT (21-72) U/L Alkaline Phosphatase (38-126) U/L Troponin I (0.00-0.120) ng/mL Total Protein (6.3-8.3) g/dL Albumin (3.5-5.0) g/dL Globulin (2.2-3.9) gm/dL Albumin/Globulin Ratio (1.0-2.1) Triglycerides (0-149) mg/dL Cholesterol (0-199) mg/dL LDL Cholesterol Direct (0-129) mg/dL HDL Cholesterol (30-70) mg/dL Blood Type Antibody Screen Laboratory Results - last 24 hr 01/26/18 01/26/18 01/26/18 15:30 15:43 15:43 WBC 7.8 RBC 4.76 Hgb 11.7 L Hct 35.3 MCV 74.2 L MCH 24.6 L MCHC 33.1 RDW 15.7 H Plt Count 302 MPV 8.4 Neut % (Auto) 68.7 Lymph % (Auto) 20.1 [place] % (Auto) 10.1 H Eos % (Auto) 0.5 Baso % (Auto) 0.6 Neut # (Auto) 5.4 Lymph # (Auto) 1.6 [place] # (Auto) 0.8 Eos # (Auto) 0.0 Baso # (Auto) 0.0 PT 13.9 H INR 1.3 APTT 41 H Sodium Potassium Chloride Carbon Dioxide Anion Gap BUN Creatinine Est GFR ( Amer) Est GFR (Non-Af Amer) POC Glucose (mg/dL) 103 Random Glucose Hemoglobin A1c Calcium Phosphorus Magnesium Total Bilirubin AST ALT Alkaline Phosphatase Troponin I Total Protein Albumin Globulin Albumin/Globulin Ratio Triglycerides Cholesterol LDL Cholesterol Direct HDL Cholesterol Blood Type Antibody Screen 01/26/18 01/26/18 01/26/18 15:43 15:43 15:43 WBC RBC Hgb Hct MCV MCH MCHC RDW Plt Count MPV Neut % (Auto) Lymph % (Auto) [place] % (Auto) Eos % (Auto) Baso % (Auto) Neut # (Auto) Lymph # (Auto) [place] # (Auto) Eos # (Auto) Baso # (Auto) PT INR APTT Sodium 140 Potassium 4.1 Chloride 104 Carbon Dioxide 22 Anion Gap 18 BUN 19 Creatinine 0.8 Est GFR ( Amer) > 60 Est GFR (Non-Af Amer) > 60 POC Glucose (mg/dL) Random Glucose 117 H Hemoglobin A1c 5.7 Calcium 9.9 Phosphorus Magnesium Total Bilirubin 0.5 AST 21 ALT 13 L Alkaline Phosphatase 116 Troponin I 0.0140 Total Protein 8.1 Albumin 4.5 Globulin 3.6 Albumin/Globulin Ratio 1.3 Triglycerides 84 Cholesterol 140 LDL Cholesterol Direct 77 HDL Cholesterol 37 Blood Type O POSITIVE Antibody Screen Negative 01/26/18 01/27/18 01/27/18 23:58 06:24 06:31 WBC 6.2 RBC 4.58 Hgb 11.4 L Hct 34.0 L MCV 74.1 L MCH 25.0 L MCHC 33.7 RDW 15.8 H Plt Count 266 MPV 8.9 Neut % (Auto) 65.5 Lymph % (Auto) 22.8 [place] % (Auto) 9.8 Eos % (Auto) 0.8 Baso % (Auto) 1.1 Neut # (Auto) 4.1 Lymph # (Auto) 1.4 [place] # (Auto) 0.6 Eos # (Auto) 0.0 Baso # (Auto) 0.1 PT INR APTT Sodium Potassium Chloride Carbon Dioxide Anion Gap BUN Creatinine Est GFR ( Amer) Est GFR (Non-Af Amer) POC Glucose (mg/dL) 78 90 Random Glucose Hemoglobin A1c Calcium Phosphorus Magnesium Total Bilirubin AST ALT Alkaline Phosphatase Troponin I Total Protein Albumin Globulin Albumin/Globulin Ratio Triglycerides Cholesterol LDL Cholesterol Direct HDL Cholesterol Blood Type Antibody Screen 01/27/18 06:31 WBC RBC Hgb Hct MCV MCH MCHC RDW Plt Count MPV Neut % (Auto) Lymph % (Auto) [place] % (Auto) Eos % (Auto) Baso % (Auto) Neut # (Auto) Lymph # (Auto) [place] # (Auto) Eos # (Auto) Baso # (Auto) PT INR APTT Sodium 141 Potassium 3.5 L Chloride 104 Carbon Dioxide 26 Anion Gap 15 BUN 13 Creatinine 0.7 L Est GFR ( Amer) > 60 Est GFR (Non-Af Amer) > 60 POC Glucose (mg/dL) Random Glucose 98 Hemoglobin A1c Calcium 9.1 Phosphorus 3.8 Magnesium 1.4 L Total Bilirubin 0.6 AST 14 L D ALT 16 L D Alkaline Phosphatase 103 Troponin I Total Protein 7.3 Albumin 3.9 Globulin 3.4 Albumin/Globulin Ratio 1.2 Triglycerides Cholesterol LDL Cholesterol Direct HDL Cholesterol Blood Type Antibody Screen EKG/Cardiology Studies: Cardiology / EKG Studies 01/26/18 15:37 ELECTROCARDIOGRAM Stat Comment: Mode Of Transportation: BED Reason For Exam: code stroke Fingerstick Blood Sugar Results: 90 Critical Care Progress Note - Nutrition Nutrition: Nutrition Category Date Time Status NPO Diet [DIET] Diets 01/26/18 Breakfast Active Assessment/Plan - Assessment and Plan (Free Text) Assessment: 73 M with PMHx of DM, HTN, and HLD presents to ED complaining of left sided weakness and slurred speech. Code stroke called and patient was candidate for TPA. ICU consulted for close observation following TPA. Patient developed left sided weakness again today. Plan: Neuro: Initial CT head No intracranial hemorrhage or mass effect. Mild cerebral atrophy. Probable minimal microvascular ischemic changes as above. CTA head and neck1. Asymmetric approximately 70-80% luminal narrowing of the right supraclinoid internal carotid segment. 2. 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 3. Coarse atherosclerotic plaques in the proximal internal carotid artery is in the neck, worse on the right with approximately 50 % luminal narrowing. No evidence of hemodynamically significant stenosis. 4. Patent bilateral cervical segments of the l vertebral arteries. The right vertebral artery is hypoplastic, an anatomic variant. Repeat Head CT: normal Brain MRI: No acute intracranial abnormality. 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 Neurologist Dr. Alejandra consulted, who recommended Brain MRI. Dr. Alejandra spoke to Neurointerventionalist, who stated no further intervention at this time. PT/OT Pulmonary: Stable on RA CXR: Enlargement of cardiovascular silhouette Cardiovascular: Maintain MAP > 65 maintain BP <180/105 for post TPA Labatolol / Cardene as needed to maintain BP <180/105 Continue to monitor F/u ECHO report f/u carotid duplex scan GI: Passed swallow eval Pepcid 20mg BID Heme: Monitor H/H No active bleeding at this time Continue to monitor Renal: Monitor I and O Replete electrolytes as needed ID: Afebrile and no leukocytosis No sign of infection Endo: maintain blood sugars 140-180 Integumentary: Vascular surgery Dr. Rodas consulted for wound on right lower extremity PPX: Pepcid Case discussed with Dr Horne. <Zeyad Horne - Last Filed: 01/27/18 18:07> CCU Objective - Vital Signs / Intake & Output Vital Signs (Last 4 hours): Vital Signs Temp Pulse Resp BP Pulse Ox 01/27/18 16:08 85 26 H 143/79 99 01/27/18 16:00 98.2 F 88 16 100 01/27/18 15:33 81 21 141/82 97 01/27/18 15:04 80 22 152/71 H 01/27/18 15:00 97.6 F 104 H 18 100 01/27/18 14:33 90 23 142/88 99 Intake and Output (Last 8hrs): Intake & Output 01/27/18 01/27/18 01/27/18 06:59 14:59 22:59 Intake Total 1270 1720 0 Output Total 650 200 150 Balance 620 1520 -150 Weight 196 lb 3.2 oz Intake: IV 300 230 Intake, IV Amount 970 1140 0 Left Hand 300 Right Antecubital 370 240 0 Right Antecubital Y-Port 600 600 0 Oral 0 350 0 Output: Urine 650 200 150 Urine, Voided 650 200 150 Other: # Voids Urine, Voided 0 0 0 # Bowel Movements 0 0 0 - Medications Active Medications: Active Medications Generic Name Dose Route Start Last Admin Trade Name Freq PRN Reason Stop Dose Admin Clopidogrel Bisulfate 75 mg 01/28/18 10:00 Plavix PO DAILY ASHLEE Famotidine 20 mg 01/26/18 18:00 01/27/18 10:40 Pepcid PO 20 mg BID ASHLEE Administration Rosuvastatin Calcium 10 mg 01/26/18 22:00 01/26/18 21:06 Crestor PO Not Given HS ASHLEE Rosuvastatin Calcium 40 mg 01/27/18 22:00 Crestor PO HS ASHLEE - Patient Studies Lab Studies: Lab Studies 01/27/18 01/27/18 01/27/18 Range/Units 16:25 12:00 06:31 WBC (4.8-10.8) K/uL RBC (4.40-5.90) Mil/uL Hgb (12.0-18.0) g/dL Hct (35.0-51.0) % MCV (80.0-94.0) fL MCH (27.0-31.0) pg MCHC (33.0-37.0) g/dL RDW (11.5-14.5) % Plt Count (130-400) K/uL MPV (7.2-11.7) fL Neut % (Auto) (50.0-75.0) % Lymph % (Auto) (20.0-40.0) % [place] % (Auto) (0.0-10.0) % Eos % (Auto) (0.0-4.0) % Baso % (Auto) (0.0-2.0) % Neut # (Auto) (1.8-7.0) K/uL Lymph # (Auto) (1.0-4.3) K/uL [place] # (Auto) (0.0-0.8) K/uL Eos # (Auto) (0.0-0.7) K/uL Baso # (Auto) (0.0-0.2) K/uL Sodium 141 (132-148) mmol/L Potassium 3.5 L (3.6-5.2) mmol/L Chloride 104 (98-107) mmol/L Carbon Dioxide 26 (22-30) mmol/L Anion Gap 15 (10-20) BUN 13 (9-20) mg/dL Creatinine 0.7 L (0.8-1.5) mg/dL Est GFR ( Amer) > 60 Est GFR (Non-Af Amer) > 60 POC Glucose (mg/dL) 151 H 131 H (65-110) mg/dL Random Glucose 98 (75-110) mg/dL Calcium 9.1 (8.6-10.4) mg/dl Phosphorus 3.8 (2.5-4.5) mg/dL Magnesium 1.4 L (1.6-2.3) mg/dL Total Bilirubin 0.6 (0.2-1.3) mg/dL AST 14 L D (17-59) U/L ALT 16 L D (21-72) U/L Alkaline Phosphatase 103 (38-126) U/L Total Protein 7.3 (6.3-8.3) g/dL Albumin 3.9 (3.5-5.0) g/dL Globulin 3.4 (2.2-3.9) gm/dL Albumin/Globulin Ratio 1.2 (1.0-2.1) 01/27/18 01/27/18 01/26/18 Range/Units 06:31 06:24 23:58 WBC 6.2 (4.8-10.8) K/uL RBC 4.58 (4.40-5.90) Mil/uL Hgb 11.4 L (12.0-18.0) g/dL Hct 34.0 L (35.0-51.0) % MCV 74.1 L (80.0-94.0) fL MCH 25.0 L (27.0-31.0) pg MCHC 33.7 (33.0-37.0) g/dL RDW 15.8 H (11.5-14.5) % Plt Count 266 (130-400) K/uL MPV 8.9 (7.2-11.7) fL Neut % (Auto) 65.5 (50.0-75.0) % Lymph % (Auto) 22.8 (20.0-40.0) % [place] % (Auto) 9.8 (0.0-10.0) % Eos % (Auto) 0.8 (0.0-4.0) % Baso % (Auto) 1.1 (0.0-2.0) % Neut # (Auto) 4.1 (1.8-7.0) K/uL Lymph # (Auto) 1.4 (1.0-4.3) K/uL [place] # (Auto) 0.6 (0.0-0.8) K/uL Eos # (Auto) 0.0 (0.0-0.7) K/uL Baso # (Auto) 0.1 (0.0-0.2) K/uL Sodium (132-148) mmol/L Potassium (3.6-5.2) mmol/L Chloride (98-107) mmol/L Carbon Dioxide (22-30) mmol/L Anion Gap (10-20) BUN (9-20) mg/dL Creatinine (0.8-1.5) mg/dL Est GFR ( Amer) Est GFR (Non-Af Amer) POC Glucose (mg/dL) 90 78 (65-110) mg/dL Random Glucose (75-110) mg/dL Calcium (8.6-10.4) mg/dl Phosphorus (2.5-4.5) mg/dL Magnesium (1.6-2.3) mg/dL Total Bilirubin (0.2-1.3) mg/dL AST (17-59) U/L ALT (21-72) U/L Alkaline Phosphatase (38-126) U/L Total Protein (6.3-8.3) g/dL Albumin (3.5-5.0) g/dL Globulin (2.2-3.9) gm/dL Albumin/Globulin Ratio (1.0-2.1) Laboratory Results - last 24 hr 01/26/18 01/27/18 01/27/18 23:58 06:24 06:31 WBC 6.2 RBC 4.58 Hgb 11.4 L Hct 34.0 L MCV 74.1 L MCH 25.0 L MCHC 33.7 RDW 15.8 H Plt Count 266 MPV 8.9 Neut % (Auto) 65.5 Lymph % (Auto) 22.8 [place] % (Auto) 9.8 Eos % (Auto) 0.8 Baso % (Auto) 1.1 Neut # (Auto) 4.1 Lymph # (Auto) 1.4 [place] # (Auto) 0.6 Eos # (Auto) 0.0 Baso # (Auto) 0.1 Sodium Potassium Chloride Carbon Dioxide Anion Gap BUN Creatinine Est GFR ( Amer) Est GFR (Non-Af Amer) POC Glucose (mg/dL) 78 90 Random Glucose Calcium Phosphorus Magnesium Total Bilirubin AST ALT Alkaline Phosphatase Total Protein Albumin Globulin Albumin/Globulin Ratio 01/27/18 01/27/18 01/27/18 06:31 12:00 16:25 WBC RBC Hgb Hct MCV MCH MCHC RDW Plt Count MPV Neut % (Auto) Lymph % (Auto) [place] % (Auto) Eos % (Auto) Baso % (Auto) Neut # (Auto) Lymph # (Auto) [place] # (Auto) Eos # (Auto) Baso # (Auto) Sodium 141 Potassium 3.5 L Chloride 104 Carbon Dioxide 26 Anion Gap 15 BUN 13 Creatinine 0.7 L Est GFR ( Amer) > 60 Est GFR (Non-Af Amer) > 60 POC Glucose (mg/dL) 131 H 151 H Random Glucose 98 Calcium 9.1 Phosphorus 3.8 Magnesium 1.4 L Total Bilirubin 0.6 AST 14 L D ALT 16 L D Alkaline Phosphatase 103 Total Protein 7.3 Albumin 3.9 Globulin 3.4 Albumin/Globulin Ratio 1.2 Critical Care Progress Note - Nutrition Nutrition: Nutrition Category Date Time Status Heart Healthy Diet [DIET] Diets 01/27/18 Breakfast Active Attending/Attestation - Attestation I have personally seen and examined this patient.: Yes I have fully participated in the care of the patient.: Yes I have reviewed all pertinent clinical information: Yes Notes (Text): 01/27/18 18:05 I have seen and examined the patient. Medical records, lab studies, and imaging were reviewed by me and a management plan was formulated on multidisciplinary rounds with resident Dr. Ji. I agree with their documented assessment and plan. Patient is having waxing and waning stroke like symptoms, with worsening and improving left hemiparesis. 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 Will maintain SBP 140-180, and give fluids for intravascular volume to hopefully improve perfusion. Critical Care Time 35 minutes. Multi-disciplinary rounds were performed with house staff, nursing, speech therapy, respiratory therapy, pharmacy and nutrition with integrated input from the primary team/attending and other consulting services. The documented time is cumulative and includes review of patient data/exams/labs/chart review and examination of the patient on rounds and throughout the day; time is exclusive of any procedures or teaching time.
--- NOTE | 2018-01-27 08:55 | CT ---
Date of service: 01/27/2018 PROCEDURE: CT HEAD WITHOUT CONTRAST. HISTORY: s/p TPA COMPARISON: None available. TECHNIQUE: Axial computed tomography images were obtained through the head/brain without intravenous contrast. Radiation dose: Total exam DLP = mGy-cm. This CT exam was performed using one or more of the following dose reduction techniques: Automated exposure control, adjustment of the mA and/or kV according to patient size, and/or use of iterative reconstruction technique. FINDINGS: HEMORRHAGE: No intracranial hemorrhage. BRAIN: No mass effect or edema. No atrophy or chronic microvascular ischemic changes. VENTRICLES: Unremarkable. No hydrocephalus. CALVARIUM: Unremarkable. PARANASAL SINUSES: Unremarkable as visualized. No significant inflammatory changes. MASTOID AIR CELLS: Unremarkable as visualized. No inflammatory changes. OTHER FINDINGS: None. IMPRESSION: Normal CT of the Head.
--- NOTE | 2018-01-27 09:36 | CP.PCM.PN ---
Subjective - Date & Time of Evaluation Date of Evaluation: 01/27/18 Time of Evaluation: 09:32 - Subjective Subjective: Patient today feeling much better. He is feeling somewhat better than yesterday. He is able to communicate better. Left-sided weakness noted. Currently undergoing speech evaluation and swallow evaluation Clinical examination remarkable for the weakness on the left side. But he is able to hold the left upper extremity and lower extremity more than 5 seconds. Weakness noted. Reflexes slightly elevated. Regular heart sound noted. Nontender abdomen. Patient's labs reviewed Low magnesium and potassium noted. CT scan of the head showing no acute pathology. Electrocardiogram showing evidence of normal sinus rhythm Assessment: 72-year-old male with a history of diabetes hypertension hyperlipidemia now admitted with a possible acute CVA. Status post TPA. Chronic nonhealing right leg ulcer. Diabetic neuropathy, possible vasculopathy cannot be ruled out. We will get a cardiology evaluation. Vascular evaluation. Echocardiogram. And will follow the patient Objective - Vital Signs/Intake and Output Vital Signs (last 24 hours): Temp Pulse Resp BP Pulse Ox 97.9 F 68 20 145/85 95 01/27/18 06:15 01/27/18 07:03 01/27/18 07:03 01/27/18 07:03 01/27/18 07:03 Intake and Output: 01/27/18 01/27/18 06:59 18:59 Intake Total 1695 Output Total 1200 Balance 495 - Medications Medications: Current Medications Famotidine (Pepcid) 20 mg PO BID [facility] Last Admin: 01/26/18 18:34 Dose: Not Given Sodium Chloride (Sodium Chloride 0.9%) 1,000 mls @ 75 mls/hr IV .[id number] [facility] Last Admin: 01/27/18 08:00 Dose: Not Given Nicardipine HCl 25 mg/ Sodium (Chloride) 250 mls @ 50 mls/hr IV .Q5H PRN; 5 MG/ HR PRN Reason: Protocol Last Titration: 01/27/18 06:30 Dose: 3 mg/hr, 30 mls/hr Potassium Chloride (Potassium Chloride 20 Meq/100 Ml) 20 meq in 100 mls @ 50 mls/hr IVPB ONCE ONE Stop: 01/27/18 09:36 Last Admin: 01/27/18 07:40 Dose: 50 mls/hr Rosuvastatin Calcium (Crestor) 10 mg PO [facility] Last Admin: 01/26/18 21:06 Dose: Not Given - Labs Labs: 01/27/18 06:31 01/27/18 06:31 PT 13.9 SECONDS (9.7-12.2) H 01/26/18 15:43 INR 1.3 01/26/18 15:43 APTT 41 SECONDS (21-34) H 01/26/18 15:43
--- NOTE | 2018-01-27 11:25 | CT ---
PROCEDURE: CTA HEAD AND NECK WITH CONTRAST HISTORY: CODE STROKE COMPARISON: None available. TECHNIQUE: Initial noncontrast head CT was performed. Subsequently, CT angiogram of the head and neck were performed after the intravenous administration of 80 mL of Omnipaque 350. Contiguous 1.5mm thick images were obtained in the axial plane of the neck. 2-D coronal and sagittal MPR images were obtained. Imaging postprocessing was performed with 3-D images also obtained. A delayed contrast head CT was also obtained. This CT exam was performed using one or more of the following dose reduction techniques: Automated exposure control, adjustment of the mA and/or kV according to patient size, and/or use of iterative reconstruction technique. Contrast dose: 100 mL Visipaque 320 Radiation dose: Total exam DLP = 632.57 MGy-cm. FINDINGS: HEAD: Right: There are coarse atherosclerotic calcifications in the cavernous carotid segment with approximately 70-80% luminal narrowing of the supraclinoid segment. The the remaining intracranial internal carotid artery, and anterior and middle cerebral arteries are widely patent. Left: Coarse atherosclerotic calcifications in the cavernous carotid segment with moderate luminal narrowing of the supraclinoid segment. The intracranial internal carotid artery, and anterior and middle cerebral arteries are widely patent. Posterior circulation: There is absent flow related enhancement in the intracranial right vertebral artery. The visualized left intracranial vertebral arteries, basilar artery and posterior cerebral arteries are widely patent. is no intracranial saccular aneurysm. NECK: There is 2 vessel aortic arch with common origin of the innominate and left common carotid artery is. There is no stenosis at the origins of the great vessels at the level of the aortic arch. Right Carotid: On the right, there are coarse calcified and noncalcified atherosclerotic plaques in the proximal internal carotid artery. The common carotid and external carotid arteries are widely patent. There is approximately 50% luminal narrowing in the proximal internal carotid artery. No hemodynamically significant stenosis in the internal carotid artery by NASCET criteria. Left Carotid: On the left, there are coarse atherosclerotic plaques in the carotid bulb and proximal internal carotid artery. The common carotid, internal carotid and external carotid arteries are widely patent. There is no hemodynamically significant stenosis in the internal carotid artery by NASCET criteria. The vertebral arteries are widely patent. The right vertebral artery is hypoplastic, an anatomic variant. There are coarse atherosclerotic calcifications at the origin of the left vertebral artery without significant IMPRESSION: 1. Asymmetric approximately 70-80% luminal narrowing of the right supraclinoid internal carotid segment. 2. 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 3. Coarse atherosclerotic plaques in the proximal internal carotid artery is in the neck, worse on the right with approximately 50 % luminal narrowing. No evidence of hemodynamically significant stenosis. 4. Patent bilateral cervical segments of the l vertebral arteries. The right vertebral artery is hypoplastic, an anatomic variant. A preliminary report was provided by [facility] services.
--- NOTE | 2018-01-27 12:46 | MRI ---
Date of service: 01/27/2018 PROCEDURE: MRI BRAIN WITHOUT CONTRAST HISTORY: CVA s/p tpa COMPARISON: Noncontrast head CT from 01/27/2018. TECHNIQUE: Multiplanar, multisequence MR images of the brain were obtained without intravenous contrast enhancement. FINDINGS: HEMORRHAGE: None DWI: No evidence of an acute or early subacute infarction. BRAIN PARENCHYMA: There is a chronic infarction in the right paramedian cong. There are old infarctions in the right lateral cerebellar hemisphere and right basal ganglia. There are mild chronic microangiopathic changes. There is no mass, mass effect or abnormal extra-axial fluid collection. The midline sagittal structures are normal. VENTRICLES: There is mild age-related global parenchymal volume loss and proportionate enlargement of the ventricles and cortical sulci. CRANIUM: There is normal bone marrow signal pattern. ORBITS: Grossly unremarkable. PARANASAL SINUSES/MASTOIDS: Clear VASCULAR SYSTEM: There is absent signal void in the right proximal intracranial vertebral artery with corresponding increased T1 and T2 signal. There are normal signal voids in the remaining intracranial arteries. OTHER FINDINGS: None. IMPRESSION: No acute intracranial abnormality. Specifically, no evidence for acute infarction. Old infarctions in the right paramedian cong, right lateral cerebellar hemisphere right basal ganglia. Mild chronic microangiopathic changes and mild age-related global parenchymal volume loss. Suspect occlusion of the right proximal intracranial vertebral artery.
[2018-01-27] MEDS ORDERED: Metoprolol Succinate 25 mg XL Tab PO SCH (14:15)
--- NOTE | 2018-01-27 14:42 | CP.PCM.CON ---
History of Present Illness - History of Present Illness History of Present Illness: PGY-1 vascular surgery consult note for Dr Granados CC: right lower extremity ulcer and PVD HPI: patient is 73 yo male with pmhx of diabetes that was consulted for a ulcer located in the dorsal aspect of right foot. Patient states it started as a small blister. Patient ruptured blister with a hot needle to let the fluid out. Patient started noticing the wound to increase after a month, where he went to see his primary Dr Calzada. Patient was given ointments. Patient admits to be complaint with his diabetes medication. Patient denies fevers, chills, pain in area of ulcer, or any bloody or purulent discharge. PMD: diabetes, HTN, HLD Pshx: Ventral hernia ALL: NKDA Sochx: denies smoking or recent alcohol use. denies illicit drug use Review of Systems - Review of Systems All systems: reviewed and no additional remarkable complaints except Review of Systems: as indicated in HPI Past Patient History - Past Medical History & Family History Past Medical History?: Yes - Past Social History Smoking Status: Never Smoked - CARDIAC Hx Cardiac Disorders: Yes Hx Hypertension: Yes - ENDOCRINE/METABOLIC Hx Diabetes Mellitus Type 2: Yes - MUSCULOSKELETAL/RHEUMATOLOGICAL Hx Falls: Yes - PSYCHIATRIC Hx Substance Use: No Meds Allergies/Adverse Reactions: Allergies Allergy/AdvReac Type Severity Reaction Status Date / Time No Known Allergies Allergy Verified 01/26/18 15:37 - Medications Medications: Current Medications Famotidine (Pepcid) 20 mg PO BID [facility] Last Admin: 01/27/18 10:40 Dose: 20 mg Nicardipine HCl 25 mg/ Sodium (Chloride) 250 mls @ 50 mls/hr IV .Q5H PRN; 5 MG/ HR PRN Reason: Protocol Last Titration: 01/27/18 13:10 Dose: 0 mg/hr, 0 mls/hr Losartan Potassium (Cozaar) 25 mg PO DAILY [facility] Last Admin: 01/27/18 14:14 Dose: 25 mg Metoprolol Succinate (Toprol Xl) 25 mg PO DAILY [facility] Last Admin: 01/27/18 14:14 Dose: 25 mg Rosuvastatin Calcium (Crestor) 10 mg PO HS [facility] Last Admin: 01/26/18 21:06 Dose: Not Given Physical Exam - Constitutional Appears: Non-toxic, No Acute Distress - Head Exam Head Exam: ATRAUMATIC, NORMAL INSPECTION, NORMOCEPHALIC - Eye Exam Eye Exam: EOMI, Normal appearance - ENT Exam ENT Exam: Mucous Membranes Moist, Normal Exam - Neck Exam Neck exam: Positive for: Normal Inspection - Respiratory Exam Respiratory Exam: NORMAL BREATHING PATTERN. absent: Accessory Muscle Use, Respiratory Distress - Back Exam Back exam: NORMAL INSPECTION - Neurological Exam Neurological exam: Alert - Psychiatric Exam Psychiatric exam: Normal Affect, Normal Mood - Skin Additional comments: [id number] right anterior distal leg ulcer, with healing borders and central open wound, nonpurulent, nonbloody, nontender. Results - Vital Signs Recent Vital Signs: Last Vital Signs Temp 97.5 F L 01/27/18 13:00 Pulse 94 H 01/27/18 13:50 Resp 22 01/27/18 13:50 BP 136/82 01/27/18 13:50 Pulse Ox 98 01/27/18 13:50 - Labs Result Diagrams: 01/27/18 06:31 01/27/18 06:31 Labs: Laboratory Results - last 24 hr 01/26/18 01/26/18 01/26/18 15:30 15:43 15:43 WBC 7.8 RBC 4.76 Hgb 11.7 L Hct 35.3 MCV 74.2 L MCH 24.6 L MCHC 33.1 RDW 15.7 H Plt Count 302 MPV 8.4 Neut % (Auto) 68.7 Lymph % (Auto) 20.1 [place] % (Auto) 10.1 H Eos % (Auto) 0.5 Baso % (Auto) 0.6 Neut # (Auto) 5.4 Lymph # (Auto) 1.6 [place] # (Auto) 0.8 Eos # (Auto) 0.0 Baso # (Auto) 0.0 PT 13.9 H INR 1.3 APTT 41 H Sodium Potassium Chloride Carbon Dioxide Anion Gap BUN Creatinine Est GFR ( Amer) Est GFR (Non-Af Amer) POC Glucose (mg/dL) 103 Random Glucose Hemoglobin A1c Calcium Phosphorus Magnesium Total Bilirubin AST ALT Alkaline Phosphatase Troponin I Total Protein Albumin Globulin Albumin/Globulin Ratio Triglycerides Cholesterol LDL Cholesterol Direct HDL Cholesterol Blood Type Antibody Screen 01/26/18 01/26/18 01/26/18 15:43 15:43 15:43 WBC RBC Hgb Hct MCV MCH MCHC RDW Plt Count MPV Neut % (Auto) Lymph % (Auto) [place] % (Auto) Eos % (Auto) Baso % (Auto) Neut # (Auto) Lymph # (Auto) [place] # (Auto) Eos # (Auto) Baso # (Auto) PT INR APTT Sodium 140 Potassium 4.1 Chloride 104 Carbon Dioxide 22 Anion Gap 18 BUN 19 Creatinine 0.8 Est GFR ( Amer) > 60 Est GFR (Non-Af Amer) > 60 POC Glucose (mg/dL) Random Glucose 117 H Hemoglobin A1c 5.7 Calcium 9.9 Phosphorus Magnesium Total Bilirubin 0.5 AST 21 ALT 13 L Alkaline Phosphatase 116 Troponin I 0.0140 Total Protein 8.1 Albumin 4.5 Globulin 3.6 Albumin/Globulin Ratio 1.3 Triglycerides 84 Cholesterol 140 LDL Cholesterol Direct 77 HDL Cholesterol 37 Blood Type O POSITIVE Antibody Screen Negative 01/26/18 01/27/18 01/27/18 23:58 06:24 06:31 WBC 6.2 RBC 4.58 Hgb 11.4 L Hct 34.0 L MCV 74.1 L MCH 25.0 L MCHC 33.7 RDW 15.8 H Plt Count 266 MPV 8.9 Neut % (Auto) 65.5 Lymph % (Auto) 22.8 [place] % (Auto) 9.8 Eos % (Auto) 0.8 Baso % (Auto) 1.1 Neut # (Auto) 4.1 Lymph # (Auto) 1.4 [place] # (Auto) 0.6 Eos # (Auto) 0.0 Baso # (Auto) 0.1 PT INR APTT Sodium Potassium Chloride Carbon Dioxide Anion Gap BUN Creatinine Est GFR ( Amer) Est GFR (Non-Af Amer) POC Glucose (mg/dL) 78 90 Random Glucose Hemoglobin A1c Calcium Phosphorus Magnesium Total Bilirubin AST ALT Alkaline Phosphatase Troponin I Total Protein Albumin Globulin Albumin/Globulin Ratio Triglycerides Cholesterol LDL Cholesterol Direct HDL Cholesterol Blood Type Antibody Screen 01/27/18 01/27/18 06:31 12:00 WBC RBC Hgb Hct MCV MCH MCHC RDW Plt Count MPV Neut % (Auto) Lymph % (Auto) [place] % (Auto) Eos % (Auto) Baso % (Auto) Neut # (Auto) Lymph # (Auto) [place] # (Auto) Eos # (Auto) Baso # (Auto) PT INR APTT Sodium 141 Potassium 3.5 L Chloride 104 Carbon Dioxide 26 Anion Gap 15 BUN 13 Creatinine 0.7 L Est GFR ( Amer) > 60 Est GFR (Non-Af Amer) > 60 POC Glucose (mg/dL) 131 H Random Glucose 98 Hemoglobin A1c Calcium 9.1 Phosphorus 3.8 Magnesium 1.4 L Total Bilirubin 0.6 AST 14 L D ALT 16 L D Alkaline Phosphatase 103 Troponin I Total Protein 7.3 Albumin 3.9 Globulin 3.4 Albumin/Globulin Ratio 1.2 Triglycerides Cholesterol LDL Cholesterol Direct HDL Cholesterol Blood Type Antibody Screen Assessment & Plan - Assessment and Plan (Free Text) Assessment: 73 yo male with pmhx of diabetes with right distal lower leg healing ulcer Plan: - CT angiogram right lower leg - f/u results, pending recommendations - right arterial PVR/SEG lower extremity - f/u results plan discussed with Dr Darwin Wagner, PGY-1 - Date & Time Date: 01/27/18 Time: 14:59
--- NOTE | 2018-01-27 15:22 | CP.PCM.PN ---
<Gopal Pendleton - Last Filed: 01/27/18 15:51> Subjective - Date & Time of Evaluation Date of Evaluation: 01/27/18 Time of Evaluation: 11:30 - Subjective Subjective: PGY-2 neurology progress note for Dr Alejandra RN evaluated patient early this morning and at that time patient did not have aphasia or dysarthria and left sided muscle strength was 4/5 in upper and lower extremity. At time of exam, patient reported he is having increased difficulty raising his left arm and leg, to the point that he needed assistance being moved to the chair - thus a stat MRI was ordered. Patient denies headache, blurry vision, dizziness, lightheadedness, parasthesias. Objective - Vital Signs/Intake and Output Vital Signs (last 24 hours): Temp Pulse Resp BP Pulse Ox 97.6 F 104 H 18 142/88 98 01/27/18 15:00 01/27/18 15:00 01/27/18 15:00 01/27/18 14:33 01/27/18 15:00 Intake and Output: 01/27/18 01/27/18 06:59 18:59 Intake Total 1695 1720 Output Total 1200 350 Balance 495 1370 - Medications Medications: Current Medications Famotidine (Pepcid) 20 mg PO BID [facility] Last Admin: 01/27/18 10:40 Dose: 20 mg Nicardipine HCl 25 mg/ Sodium (Chloride) 250 mls @ 50 mls/hr IV .Q5H PRN; 5 MG/ HR PRN Reason: Protocol Last Titration: 01/27/18 13:10 Dose: 0 mg/hr, 0 mls/hr Rosuvastatin Calcium (Crestor) 10 mg PO [facility] Last Admin: 01/26/18 21:06 Dose: Not Given - Labs Labs: 01/27/18 06:31 01/27/18 06:31 PT 13.9 SECONDS (9.7-12.2) H 01/26/18 15:43 INR 1.3 01/26/18 15:43 APTT 41 SECONDS (21-34) H 01/26/18 15:43 - Constitutional Appears: Well, No Acute Distress - Head Exam Head Exam: ATRAUMATIC, NORMAL INSPECTION - Eye Exam Eye Exam: EOMI, PERRL - ENT Exam ENT Exam: Mucous Membranes Moist - Respiratory Exam Respiratory Exam: Clear to Ausculation Bilateral, NORMAL BREATHING PATTERN. absent: Rales, Rhonchi, Wheezes - Cardiovascular Exam Cardiovascular Exam: REGULAR RHYTHM, +S1, +S2. absent: JVD, Murmur - GI/Abdominal Exam GI & Abdominal Exam: Soft, Normal Bowel Sounds. absent: Tenderness - Extremities Exam Extremities Exam: Full ROM, Normal Capillary Refill, Normal Inspection - Neurological Exam Neurological Exam: Alert, Awake, Oriented x3 Additional comments: AAOx3, able to follow commands, muscle strength RUE 5/5, LUE 3/5, right hand pan puller normal, left hand pan puller weak, RLE 5/5, LLE 3/5, CN 2-12 intact w/ exception of mild asymmetry when smiling. No dysarthria, no aphasia, no ataxia. Vibratory sensation intact in upper and lower extremity b/l. NIHSS 7. Assessment and Plan - Assessment and Plan (Free Text) Plan: 73 yr old s/p TPA at 4:16 pm on 01/26/2018 given for right para-median cong infarct, who is now stable and admitted to the ICU for monitoring: Right Para-Median Cong Infarct -Status-Post tPA given at 4:16 pm on 01/26/2018 -Patient had improvement of his left-sided weakness after tPA however this AM the weakness returned, fluctuations like this are anticipated -Hold off on aspirin until 01/30/2018, continue crestor 10mg po hs -F/U carotid duplex -F/U echo -Physical therapy eval and treat, Occupational therapy eval and treat, Swallow eval and treat -Head CT w/o contrast (after tPA): * Normal CT of the Head -Head/Neck CTA: * 1. Asymmetric approximately 70-80% luminal narrowing of the right supraclinoid internal carotid segment. 2. 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 3. Coarse atherosclerotic plaques in the proximal internal carotid artery is in the neck, worse on the right with approximately 50 % luminal narrowing. No evidence of hemodynamically significant stenosis. 4. Patent bilateral cervical segments of the l vertebral arteries. The right vertebral artery is hypoplastic, an anatomic variant. -Head CT w/o contrast: * No intracranial hemorrhage or mass effect. Mild cerebral atrophy. Probable minimal microvascular ischemic changes as above. -Brain MRI w/o contrast: * No acute intracranial abnormality. Specifically, no evidence for acute infarction. Old infarctions in the right paramedian cong, right lateral cerebellar hemisphere right basal ganglia. Mild chronic microangiopathic changes and mild age-related global parenchymal volume loss. Suspect occlusion of the right proximal intracranial vertebral artery. * Please note the above reading for the MRI does not mention the right para- median cong infarct, however this was read by Dr Alejandra, Dr Alejandra spoke to radiologist Dr Cooper (who read the MRI), and Dr Cooper agreed there was a right para-median cong infarct, Dr Cooper will update the offical read to include this finding Case discussed with Dr Alejandra <Manuel Alejandra - Last Filed: 01/28/18 05:51> Objective - Vital Signs/Intake and Output Vital Signs (last 24 hours): Temp Pulse Resp BP Pulse Ox 98.0 F 62 20 157/97 H 99 01/28/18 00:00 01/28/18 04:03 01/28/18 04:03 01/28/18 04:03 01/28/18 04:03 Intake and Output: 01/27/18 01/28/18 18:59 06:59 Intake Total 1940 900 Output Total 500 400 Balance 1440 500 - Medications Medications: Current Medications Clopidogrel Bisulfate (Plavix) 75 mg PO DAILY [facility] Dextrose (Dextrose 50% Inj) 0 ml IV STAT PRN; Protocol PRN Reason: Hypoglycemia Protocol Dextrose (Glutose 15) 0 gm PO ONCE PRN; Protocol PRN Reason: Hypoglycemia Protocol Famotidine (Pepcid) 20 mg PO BID [facility] Last Admin: 01/27/18 18:34 Dose: 20 mg Glucagon (Glucagen Diagnostic Kit) 0 mg IM STAT PRN; Protocol PRN Reason: Hypoglycemia Protocol Sodium Chloride (Sodium Chloride 0.9%) 1,000 mls @ 100 mls/hr IV .Q10H [facility] Last Admin: 01/27/18 19:30 Dose: 100 mls/hr Dextrose (Dextrose 5% In Water 1000 Ml) 1,000 mls @ 0 mls/hr IV .Q0M PRN; Protocol; Per Protocol PRN Reason: Hypoglycemia Protocol Insulin Aspart (Novolog) 0 unit SC ACHS [facility] PRN Reason: Protocol Last Admin: 01/27/18 21:50 Dose: Not Given Rosuvastatin Calcium (Crestor) 40 mg PO HS [facility] Last Admin: 09/14/18 21:49 Dose: 40 mg - Labs Labs: 01/27/18 06:31 01/27/18 06:31 PT 13.9 SECONDS (9.7-12.2) H 01/26/18 15:43 INR 1.3 01/26/18 15:43 APTT 41 SECONDS (21-34) H 01/26/18 15:43
--- NOTE | 2018-01-27 17:44 | CP.PCM.PN ---
Subjective - Date & Time of Evaluation Date of Evaluation: 01/27/18 Time of Evaluation: 17:03 - Subjective Subjective: is a 73 year old male with a PmHx. significant for DM, HTN,and HLD. Patient presented to the ER on 01/26/18 with c/o left sided weakness and slurred speech NIHSS of 7, with mild aphasia. Based on time of onset was a candidate for TPA. CTA -50% stenosis right ICA, small branch occlusion of the superior division right MCA M3 and right M1 with moderate narrowing 50%. No indication for a neuro-intervention at that time. Objective - Vital Signs/Intake and Output Vital Signs (last 24 hours): Temp Pulse Resp BP Pulse Ox 98.2 F 85 26 H 143/79 99 01/27/18 16:00 01/27/18 16:08 01/27/18 16:08 01/27/18 16:08 01/27/18 16:08 Intake and Output: 01/27/18 01/27/18 06:59 18:59 Intake Total 1695 1720 Output Total 1200 350 Balance 495 1370 - Medications Medications: Current Medications Clopidogrel Bisulfate (Plavix) 75 mg PO DAILY [facility] Famotidine (Pepcid) 20 mg PO BID [facility] Last Admin: 01/27/18 10:40 Dose: 20 mg Rosuvastatin Calcium (Crestor) 10 mg PO [facility] Last Admin: 01/26/18 21:06 Dose: Not Given Rosuvastatin Calcium (Crestor) 40 mg PO [facility] - Labs Labs: 01/27/18 06:31 01/27/18 06:31 PT 13.9 SECONDS (9.7-12.2) H 01/26/18 15:43 INR 1.3 01/26/18 15:43 APTT 41 SECONDS (21-34) H 01/26/18 15:43 - Constitutional Appears: No Acute Distress - Eye Exam Eye Exam: EOMI, PERRL Pupil Exam: NORMAL ACCOMODATION - Neck Exam Neck Exam: Normal Inspection - Respiratory Exam Respiratory Exam: Clear to Ausculation Bilateral - Cardiovascular Exam Cardiovascular Exam: REGULAR RHYTHM - Rectal Exam Rectal Exam: Deferred - Extremities Exam Additional comments: dressing intact via right lower leg (seen by wound care) - Neurological Exam Neurological Exam: Alert, Awake, Oriented x3 Neuro motor strength exam: Left Upper Extremity: 4, Right Upper Extremity: 5, Left Lower Extremity: 4, Right Lower Extremity: 5 - Psychiatric Exam Psychiatric exam: Normal Affect - Skin Skin Exam: Normal Color, Warm Assessment and Plan - Assessment and Plan (Free Text) Assessment: 73 year old male admitted 01/26/18 with left sided weakness and mild aphasia s/p TPA symptoms resolved. This am pt began to have weakness via left upper and lower ext. MRI completed and reviewed acute infarct right paramedian cong. Left upper and lower extremity remains 4/5. NEUROLOGY EXAM GENERAL: awake and alert, sitting up in bed MENTAL STATUS: (speaks Palauan fluently at baseline) awake, alert, and oriented to person, place and time, following all commands SPEECH: CLEAR CRANIAL NERVES: PERRL,EOMI, MOTOR: 5/5 right upper and lower extremity, 4/5 left upper and lower extremity; pronator drift noted via left SENSORY: intact COORDINATION:dysmetria Plan: Recommendations: 1-Maintain systolic BP 140-180 for 48 hours 2-HOB flat for 48 hours 3-start Aspirin 325mg daily 4-start Plavix 75mg daily 5-start Lipitor 80mg daily 6-continue neuro checks per unit protocol
[2018-01-27] MEDS ORDERED: Glucagon Recombinant 1 mg Inj IM PRN (19:24)
[2018-01-27] MEDS ORDERED: Dextrose 50% SYRINGE Inj (50 ml) IV PRN (19:24)
[2018-01-27] MEDS: (Novolog) Insulin Aspart, Recombinant 100 u/ml 10 ml vial SC SCH (21:50)
[2018-01-27] MEDS ORDERED: (Novolin R) Insulin Human Regular 100 units/ml vial SC SCH (22:00)
[2018-01-27] MEDS ORDERED: (Novolog) Insulin Aspart, Recombinant 100 u/ml 10 ml vial SC SCH (22:00)
--- NOTE | 2018-01-27 23:41 | CP.PCM.CON ---
History of Present Illness - History of Present Illness History of Present Illness: Reason for Consultation: CVA. r/o cardivascular etiology HPI: patient is 73 yo male with pmhx of diabetes, HTN and hyperlipidemia admitted for CVA PMD: diabetes, HTN, HLD Pshx: Ventral hernia ALL: NKDA Sochx: denies smoking or recent alcohol use. denies illicit drug use Review of Systems - Review of Systems All systems: reviewed and no additional remarkable complaints except Review of Systems: as indicated in HPI Past Patient History - Past Medical History & Family History Past Medical History?: Yes - Past Social History Smoking Status: Never Smoked - CARDIAC Hx Cardiac Disorders: Yes Hx Hypertension: Yes - ENDOCRINE/METABOLIC Hx Diabetes Mellitus Type 2: Yes - MUSCULOSKELETAL/RHEUMATOLOGICAL Hx Falls: Yes - PSYCHIATRIC Hx Substance Use: No Meds Allergies/Adverse Reactions: Allergies Allergy/AdvReac Type Severity Reaction Status Date / Time No Known Allergies Allergy Verified 01/26/18 15:37 - Medications Medications: Current Medications Famotidine (Pepcid) 20 mg PO BID [facility] Last Admin: 01/27/18 10:40 Dose: 20 mg Nicardipine HCl 25 mg/ Sodium (Chloride) 250 mls @ 50 mls/hr IV .Q5H PRN; 5 MG/ HR PRN Reason: Protocol Last Titration: 01/27/18 13:10 Dose: 0 mg/hr, 0 mls/hr Losartan Potassium (Cozaar) 25 mg PO DAILY [facility] Last Admin: 01/27/18 14:14 Dose: 25 mg Metoprolol Succinate (Toprol Xl) 25 mg PO DAILY [facility] Last Admin: 01/27/18 14:14 Dose: 25 mg Rosuvastatin Calcium (Crestor) 10 mg PO HS [facility] Last Admin: 01/26/18 21:06 Dose: Not Given Physical Exam - Constitutional Appears: Non-toxic, No Acute Distress - Head Exam Head Exam: ATRAUMATIC, NORMAL INSPECTION, NORMOCEPHALIC - Eye Exam Eye Exam: EOMI, Normal appearance - ENT Exam ENT Exam: Mucous Membranes Moist, Normal Exam - Neck Exam Neck exam: Positive for: Normal Inspection - Respiratory Exam Respiratory Exam: NORMAL BREATHING PATTERN. absent: Accessory Muscle Use, Respiratory Distress - Back Exam Back exam: NORMAL INSPECTION - Neurological Exam Neurological exam: Alert - Psychiatric Exam Psychiatric exam: Normal Affect, Normal Mood - Skin Additional comments: [id number] right anterior distal leg ulcer, with healing borders and central open wound, nonpurulent, nonbloody, nontender. Past Patient History - Past Medical History & Family History Past Medical History?: Yes - Past Social History Smoking Status: Never Smoked - CARDIAC Hx Cardiac Disorders: Yes Hx Hypertension: Yes - ENDOCRINE/METABOLIC Hx Diabetes Mellitus Type 2: Yes - MUSCULOSKELETAL/RHEUMATOLOGICAL Hx Falls: Yes - PSYCHIATRIC Hx Substance Use: No Meds Allergies/Adverse Reactions: Allergies Allergy/AdvReac Type Severity Reaction Status Date / Time No Known Allergies Allergy Verified 01/26/18 15:37 - Medications Medications: Current Medications Clopidogrel Bisulfate (Plavix) 75 mg PO DAILY [facility] Dextrose (Dextrose 50% Inj) 0 ml IV STAT PRN; Protocol PRN Reason: Hypoglycemia Protocol Dextrose (Glutose 15) 0 gm PO ONCE PRN; Protocol PRN Reason: Hypoglycemia Protocol Famotidine (Pepcid) 20 mg PO BID [facility] Last Admin: 01/27/18 18:34 Dose: 20 mg Glucagon (Glucagen Diagnostic Kit) 0 mg IM STAT PRN; Protocol PRN Reason: Hypoglycemia Protocol Sodium Chloride (Sodium Chloride 0.9%) 1,000 mls @ 100 mls/hr IV .Q10H [facility] Last Admin: 01/27/18 19:30 Dose: 100 mls/hr Dextrose (Dextrose 5% In Water 1000 Ml) 1,000 mls @ 0 mls/hr IV .Q0M PRN; Protocol; Per Protocol PRN Reason: Hypoglycemia Protocol Insulin Aspart (Novolog) 0 unit SC ACHS [facility] PRN Reason: Protocol Last Admin: 01/27/18 21:50 Dose: Not Given Rosuvastatin Calcium (Crestor) 40 mg PO HS [facility] Last Admin: 01/27/18 21:49 Dose: 40 mg Results - Vital Signs Recent Vital Signs: Last Vital Signs Temp 98.1 F 01/27/18 20:00 Pulse 84 01/27/18 21:00 Resp 24 01/27/18 21:00 BP 147/88 01/27/18 20:33 Pulse Ox 100 01/27/18 21:00 - Labs Result Diagrams: 01/27/18 06:31 01/27/18 06:31 Labs: Laboratory Results - last 24 hr 01/26/18 01/27/18 01/27/18 23:58 06:24 06:31 WBC 6.2 RBC 4.58 Hgb 11.4 L Hct 34.0 L MCV 74.1 L MCH 25.0 L MCHC 33.7 RDW 15.8 H Plt Count 266 MPV 8.9 Neut % (Auto) 65.5 Lymph % (Auto) 22.8 [place] % (Auto) 9.8 Eos % (Auto) 0.8 Baso % (Auto) 1.1 Neut # (Auto) 4.1 Lymph # (Auto) 1.4 [place] # (Auto) 0.6 Eos # (Auto) 0.0 Baso # (Auto) 0.1 Sodium Potassium Chloride Carbon Dioxide Anion Gap BUN Creatinine Est GFR ( Amer) Est GFR (Non-Af Amer) POC Glucose (mg/dL) 78 90 Random Glucose Calcium Phosphorus Magnesium Total Bilirubin AST ALT Alkaline Phosphatase Total Protein Albumin Globulin Albumin/Globulin Ratio 01/27/18 01/27/18 01/27/18 06:31 12:00 16:25 WBC RBC Hgb Hct MCV MCH MCHC RDW Plt Count MPV Neut % (Auto) Lymph % (Auto) [place] % (Auto) Eos % (Auto) Baso % (Auto) Neut # (Auto) Lymph # (Auto) [place] # (Auto) Eos # (Auto) Baso # (Auto) Sodium 141 Potassium 3.5 L Chloride 104 Carbon Dioxide 26 Anion Gap 15 BUN 13 Creatinine 0.7 L Est GFR ( Amer) > 60 Est GFR (Non-Af Amer) > 60 POC Glucose (mg/dL) 131 H 151 H Random Glucose 98 Calcium 9.1 Phosphorus 3.8 Magnesium 1.4 L Total Bilirubin 0.6 AST 14 L D ALT 16 L D Alkaline Phosphatase 103 Total Protein 7.3 Albumin 3.9 Globulin 3.4 Albumin/Globulin Ratio 1.2 01/27/18 21:05 WBC RBC Hgb Hct MCV MCH MCHC RDW Plt Count MPV Neut % (Auto) Lymph % (Auto) [place] % (Auto) Eos % (Auto) Baso % (Auto) Neut # (Auto) Lymph # (Auto) [place] # (Auto) Eos # (Auto) Baso # (Auto) Sodium Potassium Chloride Carbon Dioxide Anion Gap BUN Creatinine Est GFR ( Amer) Est GFR (Non-Af Amer) POC Glucose (mg/dL) 91 Random Glucose Calcium Phosphorus Magnesium Total Bilirubin AST ALT Alkaline Phosphatase Total Protein Albumin Globulin Albumin/Globulin Ratio Assessment & Plan - Assessment and Plan (Free Text) Assessment: 73 M with PMHx of DM, HTN, and HLD presents to ED complaining of left sided weakness and slurred speech. Code stroke called and patient was candidate for TPA. ICU consulted for close observation following TPA. Patient developed left sided weakness again today. Plan: Neuro: Initial CT head No intracranial hemorrhage or mass effect. Mild cerebral atrophy. Probable minimal microvascular ischemic changes as above. CTA head and neck1. Asymmetric approximately 70-80% luminal narrowing of the right supraclinoid internal carotid segment. 2. 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 3. Coarse atherosclerotic plaques in the proximal internal carotid artery is in the neck, worse on the right with approximately 50 % luminal narrowing. No evidence of hemodynamically significant stenosis. 4. Patent bilateral cervical segments of the l vertebral arteries. The right vertebral artery is hypoplastic, an anatomic variant. Repeat Head CT: normal Brain MRI: No acute intracranial abnormality. 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 Neurologist Dr. Alejandra consulted, who recommended Brain MRI. Dr. Alejandra spoke to Neurointerventionalist, who stated no further intervention at this time. PT/OT Pulmonary: Stable on RA CXR: Enlargement of cardiovascular silhouette Cardiovascular: Maintain MAP > 65 maintain BP <180/105 for post TPA Labatolol / Cardene as needed to maintain BP <180/105 Continue to monitor F/u ECHO report f/u carotid duplex scan GI: Passed swallow eval Pepcid 20mg BID Heme: Monitor H/H No active bleeding at this time Continue to monitor Renal: Monitor I and O Replete electrolytes as needed ID: Afebrile and no leukocytosis No sign of infection Endo: maintain blood sugars 140-180 Integumentary: Vascular surgery Dr. oRdas consulted for wound on right lower extremity PPX: Pepcid Check ECHO and Carotids
[2018-01-28] MEDS: Sodium Chloride 0.9% 1,000 ML IV SCH (05:05)
[2018-01-28 06:28] LABS: BASO % 0.6 % (0.0-2.0); EOS # 0.2 K/uL (0.0-0.7); EOS % 2.2 % (0.0-4.0); HEMOGLOBIN 11.8 g/dL (12.0-18.0); LYMPH % 28.5 % (20.0-40.0); MEAN CELL VOLUME 74.7 fL (80.0-94.0); MEAN CORPUSCULAR HGB CONC 33.4 g/dL (33.0-37.0); MEAN PLATELET VOLUME 9.4 fL (7.2-11.7); MONO # 0.8 K/uL (0.0-0.8); MONO % 11.8 % (0.0-10.0); NEUT # 4.1 K/uL (1.8-7.0); NEUT % 56.9 % (50.0-75.0); RBC 4.75 Mil/uL (4.40-5.90); RED CELL DISTRIBUTION WIDTH 16.4 % (11.5-14.5); WHITE BLOOD COUNT 7.2 K/uL (4.8-10.8)
[2018-01-28 06:45] LABS: ALB/GLOB RATIO 1.2 (1.0-2.1); ALBUMIN 4.1 g/dL (3.5-5.0); ALT/SGPT 14 U/L (21-72); AST/SGOT 22 U/L (17-59); BLOOD UREA NITROGEN 13 mg/dL (9-20); CALCIUM 9.2 mg/dl (8.6-10.4); GFR NON-AFRICAN AMERICAN > 60
[2018-01-28] MEDS: (Novolog) Insulin Aspart, Recombinant 100 u/ml 10 ml vial SC SCH ×4 (07:57→22:25)
--- NOTE | 2018-01-28 08:31 | CP.PCM.PN ---
Subjective - Date & Time of Evaluation Date of Evaluation: 01/28/18 Time of Evaluation: 07:00 - Subjective Subjective: Patient seen and examined. No acute events over night. +left sided weakness. Denies headache/dizziness, nausea/vomiting. Objective - Vital Signs/Intake and Output Vital Signs (last 24 hours): Temp Pulse Resp BP Pulse Ox 98.3 F 70 23 149/74 100 01/28/18 04:00 01/28/18 08:04 01/28/18 08:04 01/28/18 08:04 01/28/18 08:04 Intake and Output: 01/28/18 01/28/18 06:59 18:59 Intake Total 1110 Output Total 700 Balance 410 - Medications Medications: Current Medications Clopidogrel Bisulfate (Plavix) 75 mg PO DAILY [facility] Dextrose (Dextrose 50% Inj) 0 ml IV STAT PRN; Protocol PRN Reason: Hypoglycemia Protocol Dextrose (Glutose 15) 0 gm PO ONCE PRN; Protocol PRN Reason: Hypoglycemia Protocol Famotidine (Pepcid) 20 mg PO BID [facility] Last Admin: 01/27/18 18:34 Dose: 20 mg Glucagon (Glucagen Diagnostic Kit) 0 mg IM STAT PRN; Protocol PRN Reason: Hypoglycemia Protocol Sodium Chloride (Sodium Chloride 0.9%) 1,000 mls @ 100 mls/hr IV .Q10H [facility] Last Admin: 01/28/18 05:05 Dose: 100 mls/hr Dextrose (Dextrose 5% In Water 1000 Ml) 1,000 mls @ 0 mls/hr IV .Q0M PRN; Protocol; Per Protocol PRN Reason: Hypoglycemia Protocol Insulin Aspart (Novolog) 0 unit SC ACHS [facility] PRN Reason: Protocol Last Admin: 01/28/18 07:57 Dose: Not Given Rosuvastatin Calcium (Crestor) 40 mg PO HS [facility] Last Admin: 01/27/18 21:49 Dose: 40 mg - Labs Labs: 01/28/18 06:18 01/28/18 06:13 PT 13.9 SECONDS (9.7-12.2) H 01/26/18 15:43 INR 1.3 01/26/18 15:43 APTT 41 SECONDS (21-34) H 01/26/18 15:43 - Constitutional Appears: No Acute Distress - Head Exam Head Exam: NORMOCEPHALIC - Eye Exam Eye Exam: EOMI, Normal appearance - ENT Exam ENT Exam: Mucous Membranes Moist - Cardiovascular Exam Cardiovascular Exam: +S1, +S2 - GI/Abdominal Exam GI & Abdominal Exam: Soft - Extremities Exam Additional comments: +left side weakness - Psychiatric Exam Psychiatric exam: Normal Mood - Skin Skin Exam: Dry, Intact, Warm Assessment and Plan - Assessment and Plan (Free Text) Assessment: 73 yo male with pmhx of diabetes with right distal lower leg healing ulcer Plan: - CT angiogram right lower leg - f/u results, pending recommendations - right arterial PVR/SEG lower extremity - f/u results -F/u Carotid U/S -Medical management per ICU team D/wDr.Darwin Simpson PGY3
--- NOTE | 2018-01-28 09:36 | CP.CCUPN ---
CCU Objective - Vital Signs / Intake & Output Vital Signs (Last 4 hours): Vital Signs Temp Pulse Resp BP Pulse Ox 01/28/18 08:04 70 23 149/74 100 01/28/18 08:00 98.3 F 63 19 99 01/28/18 07:33 61 16 159/84 H 99 01/28/18 07:04 67 16 138/96 H 99 01/28/18 07:00 70 16 100 01/28/18 06:33 64 20 173/91 H 100 01/28/18 06:03 66 18 174/86 H 99 01/28/18 06:00 74 19 100 Intake and Output (Last 8hrs): Intake & Output 01/27/18 01/28/18 01/28/18 22:59 06:59 14:59 Intake Total 520 810 100 Output Total 550 450 350 Balance -30 360 -250 Weight 87.498 kg Intake: Intake, IV Amount 300 810 100 Right Antecubital 300 800 Right Antecubital Y-Port 0 Right Hand 10 100 Oral 220 0 0 Output: Urine 550 450 350 Urine, Voided 550 450 350 Emesis 0 0 Other: # Voids Urine, Voided 1 1 # Bowel Movements 0 0 0 - Physical Exam Head: Positive for: Atraumatic Pupils: Positive for: PERRL Upper Extremity: Positive for: NORMAL PULSES Lower Extremity: Positive for: NORMAL PULSES, Other (Venous stasis changes on lower extremities bilaterally) Neurological: Positive for: Other (Left sided facial droop. 1/5 left upper extremity. 1/5 left lower extremity. 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 5/5 strength in right upper and lower extremity. ) Skin: Positive for: Warm, Dry, Other (Wound on anterior right lower extremity. ) - Medications Active Medications: Active Medications Generic Name Dose Route Start Last Admin Trade Name Freq PRN Reason Stop Dose Admin Clopidogrel Bisulfate 75 mg 01/28/18 10:00 01/28/18 09:13 Plavix PO 75 mg DAILY [facility] Administration Dextrose 0 ml 01/27/18 19:24 Dextrose 50% Inj IV STAT PRN Hypoglycemia Protocol Protocol Dextrose 0 gm 01/27/18 19:24 Glutose 15 PO ONCE PRN Hypoglycemia Protocol Protocol Famotidine 20 mg 01/26/18 18:00 01/27/18 18:34 Pepcid PO 20 mg BID [facility] Administration Glucagon 0 mg 01/27/18 19:24 Glucagen Diagnostic Kit IM STAT PRN Hypoglycemia Protocol Protocol Sodium Chloride 1,000 mls @ 100 mls/hr 01/27/18 19:00 01/28/18 05:05 Sodium Chloride 0.9% IV 100 mls/hr .Q10H [facility] Administration Dextrose 1,000 mls @ 0 mls/hr 01/27/18 19:24 Dextrose 5% In Water 1000 Ml IV .Q0M PRN Hypoglycemia Protocol Protocol Per Protocol Insulin Aspart 0 unit 01/27/18 22:00 01/28/18 07:57 Novolog SC Not Given ACHS [facility] Protocol Rosuvastatin Calcium 40 mg 01/27/18 22:00 01/27/18 21:49 Crestor PO 40 mg HS [facility] Administration - Patient Studies Lab Studies: Microbiology Studies 01/26/18 19:17 MRSA Culture (Admit) - Final Nose MRSA NOT DETECTED Lab Studies 01/28/18 01/28/18 01/27/18 Range/Units 06:18 06:13 21:05 WBC 7.2 (4.8-10.8) K/uL RBC 4.75 (4.40-5.90) Mil/uL Hgb 11.8 L (12.0-18.0) g/dL Hct 35.4 (35.0-51.0) % MCV 74.7 L (80.0-94.0) fL MCH 25.0 L (27.0-31.0) pg MCHC 33.4 (33.0-37.0) g/dL RDW 16.4 H (11.5-14.5) % Plt Count 281 (130-400) K/uL MPV 9.4 (7.2-11.7) fL Neut % (Auto) 56.9 (50.0-75.0) % Lymph % (Auto) 28.5 (20.0-40.0) % [place] % (Auto) 11.8 H (0.0-10.0) % Eos % (Auto) 2.2 (0.0-4.0) % Baso % (Auto) 0.6 (0.0-2.0) % Neut # (Auto) 4.1 (1.8-7.0) K/uL Lymph # (Auto) 2.0 (1.0-4.3) K/uL [place] # (Auto) 0.8 (0.0-0.8) K/uL Eos # (Auto) 0.2 (0.0-0.7) K/uL Baso # (Auto) 0.0 (0.0-0.2) K/uL Sodium 142 (132-148) mmol/L Potassium 4.3 (3.6-5.2) mmol/L Chloride 105 (98-107) mmol/L Carbon Dioxide 25 (22-30) mmol/L Anion Gap 16 (10-20) BUN 13 (9-20) mg/dL Creatinine 0.7 L (0.8-1.5) mg/dL Est GFR ( Amer) > 60 Est GFR (Non-Af Amer) > 60 POC Glucose (mg/dL) 91 (65-110) mg/dL Random Glucose 107 (75-110) mg/dL Calcium 9.2 (8.6-10.4) mg/dl Phosphorus 3.3 (2.5-4.5) mg/dL Magnesium 1.9 (1.6-2.3) mg/dL Total Bilirubin 0.6 (0.2-1.3) mg/dL AST 22 (17-59) U/L ALT 14 L (21-72) U/L Alkaline Phosphatase 102 (38-126) U/L Total Protein 7.6 (6.3-8.3) g/dL Albumin 4.1 (3.5-5.0) g/dL Globulin 3.5 (2.2-3.9) gm/dL Albumin/Globulin Ratio 1.2 (1.0-2.1) 01/27/18 01/27/18 Range/Units 16:25 12:00 WBC (4.8-10.8) K/uL RBC (4.40-5.90) Mil/uL Hgb (12.0-18.0) g/dL Hct (35.0-51.0) % MCV (80.0-94.0) fL MCH (27.0-31.0) pg MCHC (33.0-37.0) g/dL RDW (11.5-14.5) % Plt Count (130-400) K/uL MPV (7.2-11.7) fL Neut % (Auto) (50.0-75.0) % Lymph % (Auto) (20.0-40.0) % [place] % (Auto) (0.0-10.0) % Eos % (Auto) (0.0-4.0) % Baso % (Auto) (0.0-2.0) % Neut # (Auto) (1.8-7.0) K/uL Lymph # (Auto) (1.0-4.3) K/uL [place] # (Auto) (0.0-0.8) K/uL Eos # (Auto) (0.0-0.7) K/uL Baso # (Auto) (0.0-0.2) K/uL Sodium (132-148) mmol/L Potassium (3.6-5.2) mmol/L Chloride (98-107) mmol/L Carbon Dioxide (22-30) mmol/L Anion Gap (10-20) BUN (9-20) mg/dL Creatinine (0.8-1.5) mg/dL Est GFR ( Amer) Est GFR (Non-Af Amer) POC Glucose (mg/dL) 151 H 131 H (65-110) mg/dL Random Glucose (75-110) mg/dL Calcium (8.6-10.4) mg/dl Phosphorus (2.5-4.5) mg/dL Magnesium (1.6-2.3) mg/dL Total Bilirubin (0.2-1.3) mg/dL AST (17-59) U/L ALT (21-72) U/L Alkaline Phosphatase (38-126) U/L Total Protein (6.3-8.3) g/dL Albumin (3.5-5.0) g/dL Globulin (2.2-3.9) gm/dL Albumin/Globulin Ratio (1.0-2.1) Laboratory Results - last 24 hr 01/27/18 01/27/18 01/27/18 12:00 16:25 21:05 WBC RBC Hgb Hct MCV MCH MCHC RDW Plt Count MPV Neut % (Auto) Lymph % (Auto) [place] % (Auto) Eos % (Auto) Baso % (Auto) Neut # (Auto) Lymph # (Auto) [place] # (Auto) Eos # (Auto) Baso # (Auto) Sodium Potassium Chloride Carbon Dioxide Anion Gap BUN Creatinine Est GFR ( Amer) Est GFR (Non-Af Amer) POC Glucose (mg/dL) 131 H 151 H 91 Random Glucose Calcium Phosphorus Magnesium Total Bilirubin AST ALT Alkaline Phosphatase Total Protein Albumin Globulin Albumin/Globulin Ratio 01/28/18 01/28/18 06:13 06:18 WBC 7.2 RBC 4.75 Hgb 11.8 L Hct 35.4 MCV 74.7 L MCH 25.0 L MCHC 33.4 RDW 16.4 H Plt Count 281 MPV 9.4 Neut % (Auto) 56.9 Lymph % (Auto) 28.5 [place] % (Auto) 11.8 H Eos % (Auto) 2.2 Baso % (Auto) 0.6 Neut # (Auto) 4.1 Lymph # (Auto) 2.0 [place] # (Auto) 0.8 Eos # (Auto) 0.2 Baso # (Auto) 0.0 Sodium 142 Potassium 4.3 Chloride 105 Carbon Dioxide 25 Anion Gap 16 BUN 13 Creatinine 0.7 L Est GFR ( Amer) > 60 Est GFR (Non-Af Amer) > 60 POC Glucose (mg/dL) Random Glucose 107 Calcium 9.2 Phosphorus 3.3 Magnesium 1.9 Total Bilirubin 0.6 AST 22 ALT 14 L Alkaline Phosphatase 102 Total Protein 7.6 Albumin 4.1 Globulin 3.5 Albumin/Globulin Ratio 1.2 Fingerstick Blood Sugar Results: 107 Critical Care Progress Note - Nutrition Nutrition: Nutrition Category Date Time Status Heart Healthy Diet [DIET] Diets 01/27/18 Breakfast Active
--- NOTE | 2018-01-28 12:44 | CP.PCM.PN ---
Subjective - Date & Time of Evaluation Date of Evaluation: 01/28/18 Time of Evaluation: 12:41 - Subjective Subjective: pt is awake and responding no chest pain no wheezing left weakness slurrring still noted fascial droop Objective - Vital Signs/Intake and Output Vital Signs (last 24 hours): Temp Pulse Resp BP Pulse Ox 98.3 F 74 20 150/85 100 01/28/18 08:00 01/28/18 10:04 01/28/18 10:04 01/28/18 10:04 01/28/18 10:04 Intake and Output: 01/28/18 01/28/18 06:59 18:59 Intake Total 1110 700 Output Total 700 350 Balance 410 350 - Medications Medications: Current Medications Clopidogrel Bisulfate (Plavix) 75 mg PO DAILY [facility] Last Admin: 01/28/18 09:13 Dose: 75 mg Dextrose (Dextrose 50% Inj) 0 ml IV STAT PRN; Protocol PRN Reason: Hypoglycemia Protocol Dextrose (Glutose 15) 0 gm PO ONCE PRN; Protocol PRN Reason: Hypoglycemia Protocol Famotidine (Pepcid) 20 mg PO BID [facility] Last Admin: 01/28/18 09:55 Dose: 20 mg Glucagon (Glucagen Diagnostic Kit) 0 mg IM STAT PRN; Protocol PRN Reason: Hypoglycemia Protocol Dextrose (Dextrose 5% In Water 1000 Ml) 1,000 mls @ 0 mls/hr IV .Q0M PRN; Protocol; Per Protocol PRN Reason: Hypoglycemia Protocol Insulin Aspart (Novolog) 0 unit SC ACHS [facility] PRN Reason: Protocol Last Admin: 01/28/18 11:33 Dose: Not Given Losartan Potassium (Cozaar) 25 mg PO DAILY [facility] Last Admin: 01/28/18 12:16 Dose: 25 mg Rosuvastatin Calcium (Crestor) 40 mg PO HS [facility] Last Admin: 01/27/18 21:49 Dose: 40 mg - Labs Labs: 01/28/18 06:18 01/28/18 06:13 PT 13.9 SECONDS (9.7-12.2) H 01/26/18 15:43 INR 1.3 01/26/18 15:43 APTT 41 SECONDS (21-34) H 01/26/18 15:43 MRI acute infarct cong area vertibral a occlusion likely chronic carotid occlustion 80% severe atherosclerosis - Head Exam Additional comments: weakness left side fascial droop Assessment and Plan (1) Hypertension Status: Acute (2) Hypercholesteremia Status: Acute (3) Atherosclerosis Status: Acute (4) CVA (cerebral vascular accident) Assessment & Plan: neuro f/u on antiplatelets s/p tpa bp controll Status: Acute
--- NOTE | 2018-01-28 14:18 | CP.PCM.PN ---
Subjective - Date & Time of Evaluation Date of Evaluation: 01/28/18 Time of Evaluation: 14:16 - Subjective Subjective: Mr. Horn was seen and examined today at bedside. He continues to be intubated, off sedation at this time, but no significant change in his mental status or neurological function. Objective - Vital Signs/Intake and Output Vital Signs (last 24 hours): Temp Pulse Resp BP Pulse Ox 97.8 F 68 21 184/96 H 98 01/28/18 12:00 01/28/18 13:04 01/28/18 13:04 01/28/18 13:04 01/28/18 13:04 Intake and Output: 01/28/18 01/28/18 06:59 18:59 Intake Total 1110 1100 Output Total 700 625 Balance 410 475 - Medications Medications: Current Medications Aspirin (Ecotrin) 81 mg PO DAILY [facility] Last Admin: 01/28/18 13:52 Dose: 81 mg Clopidogrel Bisulfate (Plavix) 75 mg PO DAILY [facility] Last Admin: 01/28/18 09:13 Dose: 75 mg Dextrose (Dextrose 50% Inj) 0 ml IV STAT PRN; Protocol PRN Reason: Hypoglycemia Protocol Dextrose (Glutose 15) 0 gm PO ONCE PRN; Protocol PRN Reason: Hypoglycemia Protocol Famotidine (Pepcid) 20 mg PO BID [facility] Last Admin: 01/28/18 09:55 Dose: 20 mg Glucagon (Glucagen Diagnostic Kit) 0 mg IM STAT PRN; Protocol PRN Reason: Hypoglycemia Protocol Dextrose (Dextrose 5% In Water 1000 Ml) 1,000 mls @ 0 mls/hr IV .Q0M PRN; Protocol; Per Protocol PRN Reason: Hypoglycemia Protocol Insulin Aspart (Novolog) 0 unit SC ACHS [facility] PRN Reason: Protocol Last Admin: 01/28/18 11:33 Dose: Not Given Losartan Potassium (Cozaar) 25 mg PO DAILY [facility] Last Admin: 01/28/18 12:16 Dose: 25 mg Rosuvastatin Calcium (Crestor) 40 mg PO HS [facility] Last Admin: 01/27/18 21:49 Dose: 40 mg - Labs Labs: 01/28/18 06:18 01/28/18 06:13 PT 13.9 SECONDS (9.7-12.2) H 01/26/18 15:43 INR 1.3 01/26/18 15:43 APTT 41 SECONDS (21-34) H 01/26/18 15:43 - Neurological Exam Additional comments: Neurologically unchanged compared with previous examination. Assessment and Plan (1) CVA (cerebral vascular accident) Assessment & Plan: The patient has a new pontine stroke and evidence of diffuse intra and extracranial atherosclerotic disease. There was no evidence of hemorrhage. Will start the patient on dual antipatelet therapy and continue close observation and otherwise conservative care. Status: Acute
--- NOTE | 2018-01-28 14:32 | CP.PCM.PN ---
Subjective - Date & Time of Evaluation Date of Evaluation: 01/28/18 Time of Evaluation: 14:29 - Subjective Subjective: Mr. Horn was seen and examined today at bedside in the ICU. He received IV tPA two days ago and improved, but still has left leg weakness and some dysarthria. No cranial nerve deficits noted despite having an acute right pontine stroke. The patient was conversant and followed commands appropriately. There were no acute events overnight. Objective - Vital Signs/Intake and Output Vital Signs (last 24 hours): Temp Pulse Resp BP Pulse Ox 97.8 F 68 21 184/96 H 98 01/28/18 12:00 01/28/18 13:04 01/28/18 13:04 01/28/18 13:04 01/28/18 13:04 Intake and Output: 01/28/18 01/28/18 06:59 18:59 Intake Total 1110 1100 Output Total 700 625 Balance 410 475 - Medications Medications: Current Medications Aspirin (Ecotrin) 81 mg PO DAILY REPLACED BY [facility] Last Admin: 01/28/18 13:52 Dose: 81 mg Clopidogrel Bisulfate (Plavix) 75 mg PO DAILY [facility]PLAC[facility] BY [facility] Last Admin: 01/28/18 09:13 Dose: 75 mg Dextrose (Dextrose 50% Inj) 0 ml IV STAT PRN; Protocol PRN Reason: Hypoglycemia Protocol Dextrose (Glutose 15) 0 gm PO ONCE PRN; Protocol PRN Reason: Hypoglycemia Protocol Famotidine (Pepcid) 20 mg PO BID REPLACED BY [facility] Last Admin: 01/28/18 09:55 Dose: 20 mg Glucagon (Glucagen Diagnostic Kit) 0 mg IM STAT PRN; Protocol PRN Reason: Hypoglycemia Protocol Dextrose (Dextrose 5% In Water 1000 Ml) 1,000 mls @ 0 mls/hr IV .Q0M PRN; Protocol; Per Protocol PRN Reason: Hypoglycemia Protocol Insulin Aspart (Novolog) 0 unit SC ACHS REPLACED BY [facility] PRN Reason: Protocol Last Admin: 01/28/18 11:33 Dose: Not Given Losartan Potassium (Cozaar) 25 mg PO DAILY REPLACED BY [facility] Last Admin: 01/28/18 12:16 Dose: 25 mg Rosuvastatin Calcium (Crestor) 40 mg PO HS REPLACED BY [facility] Last Admin: 01/27/18 21:49 Dose: 40 mg - Labs Labs: 01/28/18 06:18 01/28/18 06:13 PT 13.9 SECONDS (9.7-12.2) H 01/26/18 15:43 INR 1.3 01/26/18 15:43 APTT 41 SECONDS (21-34) H 01/26/18 15:43 - Neurological Exam Neurological Exam: Awake, Oriented x3 Neuro motor strength exam: Left Upper Extremity: 4, Right Upper Extremity: 5, Left Lower Extremity: 3, Right Lower Extremity: 5 Additional comments: NIHSS = 5 Assessment and Plan (1) CVA (cerebral vascular accident) Assessment & Plan: Will add aspirin to plavix to have the patient on dual antiplatelet therapy for diffuse intra and extra cranial atherosclerotic disease. Continue high dose statin. Start PT/OT. Status: Acute
--- NOTE | 2018-01-28 16:58 | CARD ---
APPROVED REPORT Date of service: 01/27/2018 EXAM: Two-dimensional and M-mode echocardiogram with Doppler and color Doppler. Other Information Quality : GoodRhythm : INDICATION CVA/TIA RISK FACTORS Hypertension Hyperlipidemia Diabetes 2D DIMENSIONS IVSd1.2 (0.7-1.1cm)LVDd4.2 (3.9-5.9cm) LVOT Diameter2.5 (1.8-2.4cm)PWd1.4 (0.7-1.1cm) LVDs2.3 (2.5-4.0cm)FS (%) 44.8 % LVEF (%)76.5 (>50%) M-Mode DIMENSIONS Left Atrium (MM)4.33 (2.5-4.0cm)IVSd1.11 (0.7-1.1cm) Aortic Root3.85 (2.2-3.7cm)LVDd5.16 (4.0-5.6cm) Aortic Cusp Exc.1.90 (1.5-2.0cm)PWd1.14 (0.7-1.1cm) FS (%) 45 %LVDs2.86 (2.0-3.8cm) LVEF (%)76 (>50%) Aortic Valve AoV Peak Lihrgyhz068.1cm/sAoV VTI46.3cmAO Peak GR.29mmHg LVOT Peak Xqblcpsw036.9cm/sLVOT VTI20.27cmAO Mean GR.18mmHg KIZZY (VMAX)2.20nx8EAY (VTI)2.10cm2 Mitral Valve MV E Ovjqslkk07.3cm/sMV A Otfktwdp522.8cm/sE/A ratio0.6 TDI E/Lateral E'0.0E/Medial E'0.0 Tricuspid Valve TR Peak Yqatosor718bk/sTR Peak Gr.86yjUrDWWL81kzRv LEFT VENTRICLE The left ventricle is normal size. There is normal left ventricular wall thickness. The left ventricular function is normal. The left ventricular ejection fraction is within the normal range. There is normal LV segmental wall motion. Transmitral Doppler flow pattern is abnormal. RIGHT VENTRICLE The right ventricle is normal size. ATRIA The left atrium is mildly dilated. The right atrium size is normal. AORTIC VALVE The aortic valve is moderately thickened but opens well. MITRAL VALVE The mitral valve is normal in structure. TRICUSPID VALVE There is trace to mild tricuspid regurgitation. <Conclusion> Normal LV systolic function. Diastolic dysfunction. Dilated LA. Mild AR. Thickend and sclerised AV.
--- NOTE | 2018-01-28 22:52 | CARD ---
APPROVED REPORT Date of service: 01/26/2018 EKG Measurement Heart [id number] <Conclusion> Sinus rhythm with 1st degree AV block Left axis deviation Moderate voltage criteria for LVH, may be normal variant Abnormal ECG
--- NOTE | 2018-01-28 23:13 | CP.PCM.PN ---
Subjective - Date & Time of Evaluation Date of Evaluation: 01/28/18 Time of Evaluation: 12:30 - Subjective Subjective: Patient seen and evaluated No cardiac events noted Comfortable Objective - Vital Signs/Intake and Output Vital Signs (last 24 hours): Temp Pulse Resp BP Pulse Ox 98.2 F 72 24 183/103 H 98 01/28/18 20:00 01/28/18 22:44 01/28/18 22:44 01/28/18 22:44 01/28/18 22:44 Intake and Output: 01/28/18 01/29/18 18:59 06:59 Intake Total 1400 0 Output Total 1075 0 Balance 325 0 - Medications Medications: Current Medications Amlodipine Besylate (Norvasc) 10 mg PO DAILY [facility] Last Admin: 01/28/18 17:07 Dose: 10 mg Aspirin (Ecotrin) 81 mg PO DAILY [facility] Last Admin: 01/28/18 13:52 Dose: 81 mg Clopidogrel Bisulfate (Plavix) 75 mg PO DAILY [facility] Last Admin: 01/28/18 09:13 Dose: 75 mg Dextrose (Dextrose 50% Inj) 0 ml IV STAT PRN; Protocol PRN Reason: Hypoglycemia Protocol Dextrose (Glutose 15) 0 gm PO ONCE PRN; Protocol PRN Reason: Hypoglycemia Protocol Famotidine (Pepcid) 20 mg PO BID [facility] Last Admin: 01/28/18 17:16 Dose: 20 mg Glucagon (Glucagen Diagnostic Kit) 0 mg IM STAT PRN; Protocol PRN Reason: Hypoglycemia Protocol Dextrose (Dextrose 5% In Water 1000 Ml) 1,000 mls @ 0 mls/hr IV .Q0M PRN; Protocol; Per Protocol PRN Reason: Hypoglycemia Protocol Insulin Aspart (Novolog) 0 unit SC ACHS [facility] PRN Reason: Protocol Last Admin: 01/28/18 22:25 Dose: Not Given Losartan Potassium (Cozaar) 25 mg PO DAILY [facility] Last Admin: 01/28/18 12:16 Dose: 25 mg Rosuvastatin Calcium (Crestor) 40 mg PO HS [facility] Last Admin: 01/28/18 22:24 Dose: 40 mg - Labs Labs: 01/28/18 06:18 01/28/18 06:13 PT 13.9 SECONDS (9.7-12.2) H 01/26/18 15:43 INR 1.3 01/26/18 15:43 APTT 41 SECONDS (21-34) H 01/26/18 15:43
[2018-01-29 06:36] LABS: BASO # 0.1 K/uL (0.0-0.2); BASO % 1.4 % (0.0-2.0); EOS # 0.1 K/uL (0.0-0.7); EOS % 2.1 % (0.0-4.0); HEMOGLOBIN 11.3 g/dL (12.0-18.0); LYMPH # 1.7 K/uL (1.0-4.3); MEAN CELL VOLUME 74.4 fL (80.0-94.0); MEAN CORPUSCULAR HEMOGLOBIN 24.6 pg (27.0-31.0); MONO # 0.7 K/uL (0.0-0.8); MONO % 10.6 % (0.0-10.0); NEUT # 3.9 K/uL (1.8-7.0); NEUT % 59.9 % (50.0-75.0); NRBC % 0.1 % (0.0-2.0); RBC 4.6 Mil/uL (4.40-5.90); RED CELL DISTRIBUTION WIDTH 16.3 % (11.5-14.5); WHITE BLOOD COUNT 6.5 K/uL (4.8-10.8)
[2018-01-29 07:01] LABS: ALB/GLOB RATIO 1.2 (1.0-2.1); ALBUMIN 3.8 g/dL (3.5-5.0); ALT/SGPT 16 U/L (21-72); AST/SGOT 18 U/L (17-59); BLOOD UREA NITROGEN 17 mg/dL (9-20); CALCIUM 9.1 mg/dl (8.6-10.4); GFR NON-AFRICAN AMERICAN > 60
[2018-01-29] MEDS: (Novolog) Insulin Aspart, Recombinant 100 u/ml 10 ml vial SC SCH ×5 (07:59→21:17)
--- NOTE | 2018-01-29 08:53 | CP.PCM.PN ---
Subjective - Date & Time of Evaluation Date of Evaluation: 01/29/18 Time of Evaluation: 08:50 - Subjective Subjective: surgery Pt seen and examined. No acute events. L sided weakness. Got carotid US. Denies fever, nausea. Objective - Vital Signs/Intake and Output Vital Signs (last 24 hours): Temp Pulse Resp BP Pulse Ox 97.6 F 74 16 179/99 H 98 01/29/18 07:58 01/29/18 08:02 01/29/18 07:56 01/29/18 07:57 01/29/18 07:56 Intake and Output: 01/29/18 01/29/18 06:59 18:59 Intake Total 0 400 Output Total 0 850 Balance 0 -450 - Medications Medications: Current Medications Amlodipine Besylate (Norvasc) 10 mg PO DAILY [facility] Last Admin: 01/28/18 17:07 Dose: 10 mg Aspirin (Ecotrin) 81 mg PO DAILY [facility] Last Admin: 01/28/18 13:52 Dose: 81 mg Clopidogrel Bisulfate (Plavix) 75 mg PO DAILY [facility] Last Admin: 01/28/18 09:13 Dose: 75 mg Dextrose (Dextrose 50% Inj) 0 ml IV STAT PRN; Protocol PRN Reason: Hypoglycemia Protocol Dextrose (Glutose 15) 0 gm PO ONCE PRN; Protocol PRN Reason: Hypoglycemia Protocol Famotidine (Pepcid) 20 mg PO BID [facility] Last Admin: 01/28/18 17:16 Dose: 20 mg Glucagon (Glucagen Diagnostic Kit) 0 mg IM STAT PRN; Protocol PRN Reason: Hypoglycemia Protocol Dextrose (Dextrose 5% In Water 1000 Ml) 1,000 mls @ 0 mls/hr IV .Q0M PRN; Protocol; Per Protocol PRN Reason: Hypoglycemia Protocol Insulin Aspart (Novolog) 0 unit SC ACHS [facility] PRN Reason: Protocol Last Admin: 01/29/18 07:59 Dose: Not Given Losartan Potassium (Cozaar) 25 mg PO DAILY [facility] Last Admin: 01/28/18 12:16 Dose: 25 mg Rosuvastatin Calcium (Crestor) 40 mg PO HS [facility] Last Admin: 01/28/18 22:24 Dose: 40 mg - Labs Labs: 01/29/18 06:20 01/29/18 06:27 PT 13.9 SECONDS (9.7-12.2) H 01/26/18 15:43 INR 1.3 01/26/18 15:43 APTT 41 SECONDS (21-34) H 01/26/18 15:43 - Constitutional Appears: No Acute Distress - Head Exam Head Exam: ATRAUMATIC, NORMAL INSPECTION, NORMOCEPHALIC - Eye Exam Eye Exam: EOMI, Normal appearance, PERRL Pupil Exam: NORMAL ACCOMODATION, PERRL - ENT Exam ENT Exam: Mucous Membranes Moist, Normal Exam - Neck Exam Neck Exam: Full ROM - Respiratory Exam Respiratory Exam: NORMAL BREATHING PATTERN - Cardiovascular Exam Cardiovascular Exam: REGULAR RHYTHM - GI/Abdominal Exam GI & Abdominal Exam: Soft. absent: Distended, Tenderness - Extremities Exam Extremities Exam: absent: Full ROM, Tenderness Additional comments: L sided weakenss - Neurological Exam Neurological Exam: Alert, Awake, Oriented x3. absent: Normal Gait Neuro motor strength exam: Left Upper Extremity: 4, Right Upper Extremity: 5, Left Lower Extremity: 3, Right Lower Extremity: 5 - Psychiatric Exam Psychiatric exam: Normal Affect, Normal Mood - Skin Skin Exam: Dry, Intact, Normal Color, Warm Assessment and Plan - Assessment and Plan (Free Text) Assessment: 73 yo male with pmhx of diabetes with right distal lower leg healing ulcer came with CVA Carotid US peak systoli R ICA 83cm/s Plan: - CT angiogram right lower leg - f/u results, pending recommendations - right arterial PVR/SEG lower extremity - f/u results -Medical management per ICU team D/wDr.Darwin
[2018-01-29] MEDS ORDERED: Iodixanol 320 mg/ml 150 ml Bottle IV ONE (10:32)
--- NOTE | 2018-01-29 12:35 | VASCLAB ---
Date of service: 01/28/2018 PROCEDURE: HISTORY: Stroke, Cerebral atherosclerosis. COMPARISON: None available. TECHNIQUE: Grayscale and duplex Doppler evaluation of the cervical carotid and vertebral arteries were performed. The common carotid, carotid bifurcations and cervical Internal Carotid Artery (ICA) and proximal External Carotid Artery (ECA) were evaluated. The vertebral arteries were evaluated for gross patency and flow direction. Report prepared by Dorian Trevino, T FINDINGS: RIGHT CAROTID ARTERIES: 1. Common Carotid Artery: No significant focal plaque formation of the right common carotid artery. Maximum Peak Systolic velocity: 44.2 cm/sec: End-diastolic velocity 7.7 cm/sec. 2. Carotid Bifurcation: Heterogeneous plaque formation. Maximum Peak Systolic velocity: 45.4 cm/sec: End-diastolic velocity 9.9 cm/sec. 3. Internal Carotid Artery: Plaque description: Irregular, Heterogeneous 3.1. Proximal Segment: Peak systolic velocity 83.3 cm/sec: End-diastolic velocity 21.4 cm/sec - % stenosis 30-49% 3.2. Middle Segment: Peak systolic velocity 70.9 cm/sec: End-diastolic velocity 25.6 cm/sec - % stenosis 3.3. Distal Segment: Peak systolic velocity 31.3 cm/sec: End-diastolic velocity 9.1 cm/sec - % stenosis 4. External Carotid Artery: No significant focal plaque formation. Peak systolic velocity 34.3 cm/sec 5. ICA/CCA Ratio: 1.88 LEFT CAROTID ARTERIES: 1. Common Carotid Artery: No significant focal plaque formation of the left common carotid artery. Maximum Peak Systolic velocity: 57.5 cm/sec: End-diastolic velocity 10.1 cm/sec. 2. Carotid Bifurcation: Calcific plaque formation. Maximum Peak Systolic velocity: 45.3 cm/sec: End-diastolic velocity 7.9 cm/sec. 3. Internal Carotid Artery: Plaque description: Heterogeneous, Calcific 3.1. Proximal Segment: Peak systolic velocity 79.1 cm/sec: End-diastolic velocity 20.5 cm/sec - % stenosis 30-49% 3.2. Middle Segment: Peak systolic velocity 40.6 cm/sec: End-diastolic velocity 13.7 cm/sec - % stenosis 3.3. Distal Segment: Peak systolic velocity 43.9 cm/sec: End-diastolic velocity 17.0 cm/sec - % stenosis 4. External Carotid Artery: No significant focal plaque formation. Peak systolic velocity 47.9 cm/sec 5. ICA/CCA Ratio: 1.38 VERTEBRAL ARTERIES: 1. Right Vertebral Artery: The right vertebral artery flow direction is antegrade. 2. Left Vertebral Artery: The left vertebral artery flow direction is antegrade. OTHER FINDINGS: 1. Right Brachial Blood pressure: mmHg. 2. Left Brachial Blood pressure: mmHg. IMPRESSION: RIGHT: Duplex scan does suggest 30-49% Non hemodynamically stenosis of the right internal carotid artery. LEFT: Duplex scan does suggest 30-49% Non hemodynamically stenosis of the left internal carotid artery. .
--- NOTE | 2018-01-29 12:36 | VASCLAB ---
Date of service: 01/28/2018 STUDY DESCRIPTION: HISTORY: PVD, R LE ulcer PRIORS: None. TECHNIQUE: Pulse volume recording waveforms and segmental pressures of bilateral lower extremities at multiple levels were obtained. Ankle Brachial Indices (ABIs) were calculated. Report prepared by Dorian Trevino RVT RIGHT LOWER EXTREMITY: * Brachial artery: Pressure - 158 mmHg. * High thigh: Pressure - 220 mmHg: Ratio - 1.31: PVR waveform - Pulsatile * Low thigh: Pressure - 220 mmHg: Ratio - 1.31 PVR waveform: Pulsatile * Calf: Pressure - 216 mmHg: Ratio - 1.29 PVR waveform: Pulsatile * Posterior tibial Artery: Pressure - 153 mmHg: Ratio - 0.91 PVR waveform: Reduced * Dorsalis pedis Artery: Pressure - 169 mmHg: Ratio - 1.01 PVR waveform: Reduced * Great toe: Pressure - 99 mmHg: Ratio - 0.59 PVR waveform: Reduced Ankle brachial index (SAUL): 1.01 LEFT LOWER EXTREMITY: * Brachial artery: Pressure - 168 mmHg. 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 There was calcified vessels. TBI 0.59 consistent with intermittent claudication range. Left: There was mild femoro-popliteal and moderate infrapopliteal(tibio-peroneal) arterial occlusive disease. There was calcified vessels. TBI 0.58 consistent with intermittent claudication range.
--- NOTE | 2018-01-29 14:06 | CP.PCM.PN ---
Subjective - Date & Time of Evaluation Date of Evaluation: 01/29/18 Time of Evaluation: 14:05 Objective - Vital Signs/Intake and Output Vital Signs (last 24 hours): Temp Pulse Resp BP Pulse Ox 98.3 F 106 H 22 140/98 H 100 01/29/18 11:43 01/29/18 12:00 01/29/18 12:00 01/29/18 11:56 01/29/18 12:00 Intake and Output: 01/29/18 01/29/18 06:59 18:59 Intake Total 0 400 Output Total 0 850 Balance 0 -450 - Medications Medications: Current Medications Amlodipine Besylate (Norvasc) 10 mg PO DAILY [facility] Last Admin: 01/29/18 09:24 Dose: 10 mg Aspirin (Ecotrin) 81 mg PO DAILY [facility] Last Admin: 01/29/18 09:24 Dose: 81 mg Clopidogrel Bisulfate (Plavix) 75 mg PO DAILY [facility] Last Admin: 01/29/18 09:24 Dose: 75 mg Dextrose (Dextrose 50% Inj) 0 ml IV STAT PRN; Protocol PRN Reason: Hypoglycemia Protocol Dextrose (Glutose 15) 0 gm PO ONCE PRN; Protocol PRN Reason: Hypoglycemia Protocol Famotidine (Pepcid) 20 mg PO BID [facility] Last Admin: 01/29/18 09:28 Dose: 20 mg Glucagon (Glucagen Diagnostic Kit) 0 mg IM STAT PRN; Protocol PRN Reason: Hypoglycemia Protocol Dextrose (Dextrose 5% In Water 1000 Ml) 1,000 mls @ 0 mls/hr IV .Q0M PRN; Protocol; Per Protocol PRN Reason: Hypoglycemia Protocol Insulin Aspart (Novolog) 0 unit SC ACHS [facility] PRN Reason: Protocol Last Admin: 01/29/18 12:47 Dose: 3 u Losartan Potassium (Cozaar) 25 mg PO DAILY [facility] Last Admin: 01/29/18 09:24 Dose: 25 mg Rosuvastatin Calcium (Crestor) 40 mg PO HS [facility] Last Admin: 01/28/18 22:24 Dose: 40 mg - Labs Labs: 01/29/18 06:20 01/29/18 06:27 PT 13.9 SECONDS (9.7-12.2) H 01/26/18 15:43 INR 1.3 01/26/18 15:43 APTT 41 SECONDS (21-34) H 01/26/18 15:43 Assessment and Plan (1) Hypertension Status: Acute (2) Hypercholesteremia Status: Acute (3) Atherosclerosis Status: Acute (4) CVA (cerebral vascular accident) Status: Acute
--- NOTE | 2018-01-29 20:49 | CP.PCM.PN ---
Subjective - Date & Time of Evaluation Date of Evaluation: 01/29/18 Time of Evaluation: 10:20 - Subjective Subjective: Patient seen and evaluated Denies chest pain and dyspnea S/P CVA CAD Medical management Objective - Vital Signs/Intake and Output Vital Signs (last 24 hours): Temp Pulse Resp BP Pulse Ox 98.6 F 99 H 22 168/92 H 96 01/29/18 20:00 01/29/18 18:38 01/29/18 18:38 01/29/18 18:38 01/29/18 18:38 Intake and Output: 01/29/18 01/30/18 18:59 06:59 Intake Total 1600 Output Total 1876 Balance -276 - Medications Medications: Current Medications Amlodipine Besylate (Norvasc) 10 mg PO DAILY [facility] Last Admin: 01/29/18 09:24 Dose: 10 mg Aspirin (Ecotrin) 81 mg PO DAILY [facility] Last Admin: 01/29/18 09:24 Dose: 81 mg Clopidogrel Bisulfate (Plavix) 75 mg PO DAILY [facility] Last Admin: 01/29/18 09:24 Dose: 75 mg Dextrose (Dextrose 50% Inj) 0 ml IV STAT PRN; Protocol PRN Reason: Hypoglycemia Protocol Dextrose (Glutose 15) 0 gm PO ONCE PRN; Protocol PRN Reason: Hypoglycemia Protocol Famotidine (Pepcid) 20 mg PO BID [facility] Last Admin: 01/29/18 17:53 Dose: 20 mg Glucagon (Glucagen Diagnostic Kit) 0 mg IM STAT PRN; Protocol PRN Reason: Hypoglycemia Protocol Dextrose (Dextrose 5% In Water 1000 Ml) 1,000 mls @ 0 mls/hr IV .Q0M PRN; Protocol; Per Protocol PRN Reason: Hypoglycemia Protocol Insulin Aspart (Novolog) 0 unit SC ACHS [facility] PRN Reason: Protocol Last Admin: 01/29/18 17:53 Dose: 2 u Losartan Potassium (Cozaar) 25 mg PO DAILY [facility] Last Admin: 01/29/18 09:24 Dose: 25 mg Rosuvastatin Calcium (Crestor) 40 mg PO HS [facility] Last Admin: 01/28/18 22:24 Dose: 40 mg - Labs Labs: 01/29/18 06:20 01/29/18 06:27 PT 13.9 SECONDS (9.7-12.2) H 01/26/18 15:43 INR 1.3 01/26/18 15:43 APTT 41 SECONDS (21-34) H 01/26/18 15:43
[2018-01-30 06:22] LABS: BASO % 0.8 % (0.0-2.0); EOS # 0.1 K/uL (0.0-0.7); EOS % 2.1 % (0.0-4.0); HEMOGLOBIN 11.6 g/dL (12.0-18.0); LYMPH # 1.4 K/uL (1.0-4.3); LYMPH % 22.5 % (20.0-40.0); MEAN CELL VOLUME 75.7 fL (80.0-94.0); MEAN CORPUSCULAR HEMOGLOBIN 24.8 pg (27.0-31.0); MEAN CORPUSCULAR HGB CONC 32.8 g/dL (33.0-37.0); MEAN PLATELET VOLUME 9.1 fL (7.2-11.7); MONO # 0.7 K/uL (0.0-0.8); MONO % 11.6 % (0.0-10.0); RBC 4.67 Mil/uL (4.40-5.90); RED CELL DISTRIBUTION WIDTH 16.4 % (11.5-14.5); WHITE BLOOD COUNT 6.3 K/uL (4.8-10.8)
[2018-01-30 06:33] LABS: ALB/GLOB RATIO 1.2 (1.0-2.1)
[2018-01-30 06:40] LABS: ALT/SGPT 20 U/L (21-72); AST/SGOT 16 U/L (17-59); BLOOD UREA NITROGEN 16 mg/dL (9-20); CALCIUM 9.3 mg/dl (8.6-10.4); GFR NON-AFRICAN AMERICAN > 60
[2018-01-30] MEDS: (Novolog) Insulin Aspart, Recombinant 100 u/ml 10 ml vial SC SCH ×4 (08:00→21:45)
--- NOTE | 2018-01-30 11:23 | CT ---
Date of service: 01/29/2018 PROCEDURE: CT Angiography Abdomen, Pelvis and Lower Extremity with Contrast HISTORY: RLE ulcer COMPARISON: None available. TECHNIQUE: Technique: CT angiography of the abdomen, pelvis and bilateral lower extremities performed in the arterial phase of enhancement. Coronal and sagittal reformats, and well as rotating MIP images of the vessels generated at the workstation. Intravenous contrast dose: 150 milliliters Visipaque 320 Radiation dose: Total exam DLP = 2479.26 MGy-cm. This CT exam was performed using one or more of the following dose reduction techniques: Automated exposure control, adjustment of the mA and/or kV according to patient size, and/or use of iterative reconstruction technique. FINDINGS: CT ANGIOGRAPHY: ABDOMINAL AORTA:: The abdominal is unremarkable. MAJOR AORTIC BRANCHES: Celiac [place]: Unremarkable. Superior mesenteric artery: Unremarkable. Inferior mesenteric artery: Unremarkable. Renal arteries: Unremarkable. PELVIC ARTERIES: Right Common Iliac: Unremarkable. Right External Iliac: Unremarkable. Right Internal Iliac: Unremarkable. Left Common Iliac: Unremarkable. Left External Iliac: Unremarkable. Left Internal Iliac: Unremarkable. RIGHT LOWER EXTREMITY ARTERIES: Right Common Femoral: Unremarkable. Right Superficial Femoral: A plaque in the SFA without significant stenosis. Right Profunda Femoris: Unremarkable. Right Popliteal:Moderate popliteal artery stenosis. Right Anterior Tibial: Occludes at the origin with no reconstitution. Right Tibioperoneal Trunk: Unremarkable. Right Posterior Tibial: Occluded with no definite reconstitution. Right Peroneal: Occludes at the origin and reconstitutes in the mid segment. Right dorsalis pedis : This flow present within the dorsalis pedis artery. LEFT LOWER EXTREMITY ARTERIES: Left Common Femoral: Unremarkable. Left Superficial Femoral: Mild plaque without significant stenosis. Left Profunda Femoris: Unremarkable. Left Popliteal: Mild plaque without significant stenosis. Left Anterior Tibial: Occluded proximal segment with no reconstitution. Left Tibioperoneal Trunk: Unremarkable. Left Posterior Tibial: Moderate calcific plaque which limits evaluation. Believed to occlude in the proximal segment with no reconstitution. Left Peroneal: Unremarkable. Left Dorsalis pedis: Slower present within the dorsalis pedis artery. NON-ANGIOGRAPHIC ASPECT OF THE EXAM: LOWER THORAX: Unremarkable. LIVER: Unremarkable. No gross lesion or ductal dilatation. GALLBLADDER AND BILE DUCTS: Unremarkable. PANCREAS: Unremarkable. No gross lesion or ductal dilatation. SPLEEN: Unremarkable. ADRENALS: Unremarkable. No mass. KIDNEYS AND URETERS: Unremarkable. No hydronephrosis. No solid mass. STOMACH AND BOWEL: Unremarkable. No obstruction. No gross mural thickening. APPENDIX: Normal appendix. PERITONEUM: Unremarkable. No free fluid. No free air. LYMPH NODES: Unremarkable. No enlarged lymph nodes. BLADDER: Unremarkable. REPRODUCTIVE: Unremarkable. BONES: No acute fracture. OTHER FINDINGS: None. IMPRESSION: CT ANGIOGRAM ABDOMEN/PELVIS: 1. Unremarkable CT angiogram of the abdomen pelvis. RIGHT LOWER EXTREMITY CT ANGIOGRAM: 1. The common femoral artery, superficial femoral artery, profunda femoral artery are normal. 2. Moderate stenosis of popliteal artery. 3. Runoff shows occlusion of the anterior tibial artery at the origin with no reconstitution. The peroneal artery occludes in the proximal segment and reconstitutes in the mid segment via collaterals. The posterior tibial artery was occluded proximal segment with no reconstitution. LEFT LOWER EXTREMITY CT ANGIOGRAM: 1. The common femoral artery, superficial femoral artery complete profunda femoral artery and popliteal artery are normal. 2. Runoff shows a patent peroneal artery. Anterior tibial artery occludes in the proximal segment with no reconstitution. The posterior tibial artery occludes in the proximal segment with no reconstitution.
--- NOTE | 2018-01-30 16:36 | CP.PCM.PN ---
Subjective - Date & Time of Evaluation Date of Evaluation: 01/30/18 Time of Evaluation: 10:25 - Subjective Subjective: Cardiology progress note ( Dr. Mccall's service) Patient was seen and examined at bedside. Patient reports that he is doing well with improving symptoms. Patient denies any cardiac symptoms. Objective - Vital Signs/Intake and Output Vital Signs (last 24 hours): Temp Pulse Resp BP Pulse Ox 98.3 F 90 15 139/90 99 01/30/18 12:00 01/30/18 15:20 01/30/18 15:20 01/30/18 15:20 01/30/18 08:00 Intake and Output: 01/30/18 01/30/18 06:59 18:59 Intake Total 250 450 Output Total 850 400 Balance -600 50 - Medications Medications: Current Medications Amlodipine Besylate (Norvasc) 10 mg PO DAILY [facility] Last Admin: 01/30/18 11:00 Dose: 10 mg Aspirin (Ecotrin) 81 mg PO DAILY [facility] Last Admin: 01/30/18 09:38 Dose: 81 mg Clopidogrel Bisulfate (Plavix) 75 mg PO DAILY [facility] Last Admin: 01/30/18 09:38 Dose: 75 mg Dextrose (Dextrose 50% Inj) 0 ml IV STAT PRN; Protocol PRN Reason: Hypoglycemia Protocol Dextrose (Glutose 15) 0 gm PO ONCE PRN; Protocol PRN Reason: Hypoglycemia Protocol Famotidine (Pepcid) 20 mg PO BID [facility] Last Admin: 01/30/18 09:37 Dose: 20 mg Glucagon (Glucagen Diagnostic Kit) 0 mg IM STAT PRN; Protocol PRN Reason: Hypoglycemia Protocol Dextrose (Dextrose 5% In Water 1000 Ml) 1,000 mls @ 0 mls/hr IV .Q0M PRN; Protocol; Per Protocol PRN Reason: Hypoglycemia Protocol Insulin Aspart (Novolog) 0 unit SC ACHS [facility] PRN Reason: Protocol Last Admin: 01/30/18 11:39 Dose: 3 u Losartan Potassium (Cozaar) 25 mg PO DAILY [facility] Last Admin: 01/30/18 11:03 Dose: 25 mg Rosuvastatin Calcium (Crestor) 40 mg PO HS [facility] Last Admin: 01/29/18 21:18 Dose: 40 mg - Labs Labs: 01/30/18 06:07 01/30/18 06:07 PT 13.9 SECONDS (9.7-12.2) H 01/26/18 15:43 INR 1.3 01/26/18 15:43 APTT 41 SECONDS (21-34) H 01/26/18 15:43 - Constitutional Appears: No Acute Distress - Head Exam Head Exam: ATRAUMATIC - Eye Exam Eye Exam: EOMI, Normal appearance - ENT Exam ENT Exam: Mucous Membranes Moist - Respiratory Exam Respiratory Exam: Clear to Ausculation Bilateral, NORMAL BREATHING PATTERN. absent: Rhonchi, Wheezes - Cardiovascular Exam Cardiovascular Exam: REGULAR RHYTHM, +S1, +S2 - GI/Abdominal Exam GI & Abdominal Exam: Soft, Normal Bowel Sounds - Extremities Exam Extremities Exam: Normal Inspection - Neurological Exam Neurological Exam: Alert, Awake, Oriented x3 Neuro motor strength exam: Left Upper Extremity: 4, Right Upper Extremity: 5, Left Lower Extremity: 3, Right Lower Extremity: 5 - Psychiatric Exam Psychiatric exam: Normal Affect - Skin Skin Exam: Normal Color Assessment and Plan (1) CVA (cerebral vascular accident) Assessment & Plan: 73 M with PMHx of DM, HTN, and HLD presents to ED complaining of left sided weakness and slurred speech. Code stroke called and patient was candidate for TPA. Patient was given TPA. Cardiology consult for further evaluation of etiology of CVA: Lipid Panel: - TGL: 84, Chol: 140, LDL: 77 and HDL: 37 - HgbA1C: 5.7 Imaging: Head CT (01/26/18): No intracranial hemorrhage or mass effect. Mild cerebral atrophy. Probable minimal microvascular ischemic changes as above. Head/ Neck CTA (01/26/18): Asymmetric approximately 70-80% luminal narrowing of the right supraclinoid internal carotid segment. 2. 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 3. Coarse atherosclerotic plaques in the proximal internal carotid artery is in the neck, worse on the right with approximately 50 % luminal narrowing. No evidence of hemodynamically significant stenosis. 4. Patent bilateral cervical segments of the l vertebral arteries. The right vertebral artery is hypoplastic, an anatomic variant. Head CT ( 01/27/18): Normal CT of the Head Brain MRI (01/27/18): No acute intracranial abnormality. Specifically, no evidence for acute infarction. Old infarctions in the right paramedian cong, right lateral cerebellar hemisphere right basal ganglia. Mild chronic microangiopathic changes and mild age-related global parenchymal volume loss. Suspect occlusion of the right proximal intracranial vertebral artery. Carotid doppler: 30-49 % non-hemodynamically stenosis of right and left internal carotid artery Echocardiogram (01/26/18): Normal LV systolic function. Diastolic dysfunction. Dilated LA. Mild AR. Thickened and sclerosed AV Plans for bubble study Medications/Management: -ASA 81mg PO daily - Plavix 75mg PO daily - Crestor 40mg PO HS All plans and management discussed with Dr. Mccall Status: Acute
[2018-01-31] MEDS: (Novolog) Insulin Aspart, Recombinant 100 u/ml 10 ml vial SC SCH ×4 (08:00→21:57)
--- NOTE | 2018-01-31 16:35 | CP.PCM.PN ---
<Lb Stubbs E - Last Filed: 01/31/18 16:32> Subjective - Date & Time of Evaluation Date of Evaluation: 01/31/18 Time of Evaluation: 10:45 - Subjective Subjective: Cardiology progress note ( Dr. Mccall's service) Patient was seen and examined at bedside. Patient reports that he is doing well with improving symptoms. Patient denies any cardiac symptoms. Objective - Vital Signs/Intake and Output Vital Signs (last 24 hours): Temp Pulse Resp BP Pulse Ox 98.1 F 80 19 168/89 H 100 01/31/18 12:00 01/31/18 10:00 01/31/18 02:00 01/31/18 04:00 01/31/18 04:00 Intake and Output: 01/31/18 01/31/18 06:59 18:59 Intake Total 250 480 Output Total 1550 500 Balance -1300 -20 - Medications Medications: Current Medications Amlodipine Besylate (Norvasc) 10 mg PO DAILY [facility] Last Admin: 01/31/18 09:43 Dose: 10 mg Aspirin (Ecotrin) 81 mg PO DAILY [facility] Last Admin: 01/31/18 09:43 Dose: 81 mg Clopidogrel Bisulfate (Plavix) 75 mg PO DAILY [facility] Last Admin: 01/31/18 09:43 Dose: 75 mg Dextrose (Dextrose 50% Inj) 0 ml IV STAT PRN; Protocol PRN Reason: Hypoglycemia Protocol Dextrose (Glutose 15) 0 gm PO ONCE PRN; Protocol PRN Reason: Hypoglycemia Protocol Famotidine (Pepcid) 20 mg PO BID [facility] Last Admin: 01/31/18 09:43 Dose: 20 mg Glucagon (Glucagen Diagnostic Kit) 0 mg IM STAT PRN; Protocol PRN Reason: Hypoglycemia Protocol Heparin Sodium (Porcine) (Heparin) 5,000 units SC Q12 [facility] Last Admin: 01/31/18 09:43 Dose: 5,000 units Insulin Aspart (Novolog) 0 unit SC ACHS [facility] PRN Reason: Protocol Last Admin: 01/31/18 12:01 Dose: 3 u Losartan Potassium (Cozaar) 25 mg PO DAILY [facility] Last Admin: 01/31/18 09:43 Dose: 25 mg Rosuvastatin Calcium (Crestor) 40 mg PO HS [facility] Last Admin: 01/30/18 21:43 Dose: 40 mg - Labs Labs: 01/30/18 06:07 01/30/18 06:07 PT 13.9 SECONDS (9.7-12.2) H 01/26/18 15:43 INR 1.3 01/26/18 15:43 APTT 41 SECONDS (21-34) H 01/26/18 15:43 - Constitutional Appears: No Acute Distress - Head Exam Head Exam: ATRAUMATIC - Eye Exam Eye Exam: EOMI - ENT Exam ENT Exam: Mucous Membranes Moist - Respiratory Exam Respiratory Exam: NORMAL BREATHING PATTERN - Cardiovascular Exam Cardiovascular Exam: REGULAR RHYTHM, +S1, +S2 - GI/Abdominal Exam GI & Abdominal Exam: Soft, Normal Bowel Sounds - Extremities Exam Extremities Exam: Normal Inspection. absent: Pedal Edema - Neurological Exam Neuro motor strength exam: Left Upper Extremity: 3 (decrease ROM ), Right Upper Extremity: 5, Left Lower Extremity: 3 (decrease ROM ), Right Lower Extremity: 5 - Psychiatric Exam Psychiatric exam: Normal Affect Assessment and Plan (1) CVA (cerebral vascular accident) Assessment & Plan: 73 M with PMHx of DM, HTN, and HLD presents to ED complaining of left sided weakness and slurred speech. Code stroke called and patient was candidate for TPA. Patient was given TPA. Cardiology consult for further evaluation of etiology of CVA: Lipid Panel: - TGL: 84, Chol: 140, LDL: 77 and HDL: 37 - HgbA1C: 5.7 Imaging: Head CT (01/26/18): No intracranial hemorrhage or mass effect. Mild cerebral atrophy. Probable minimal microvascular ischemic changes as above. Head/ Neck CTA (01/26/18): Asymmetric approximately 70-80% luminal narrowing of the right supraclinoid internal carotid segment. 2. 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 3. Coarse atherosclerotic plaques in the proximal internal carotid artery is in the neck, worse on the right with approximately 50 % luminal narrowing. No evidence of hemodynamically significant stenosis. 4. Patent bilateral cervical segments of the l vertebral arteries. The right vertebral artery is hypoplastic, an anatomic variant. Head CT ( 01/27/18): Normal CT of the Head Brain MRI (01/27/18): No acute intracranial abnormality. Specifically, no evidence for acute infarction. Old infarctions in the right paramedian cong, right lateral cerebellar hemisphere right basal ganglia. Mild chronic microangiopathic changes and mild age-related global parenchymal volume loss. Suspect occlusion of the right proximal intracranial vertebral artery. Carotid doppler: 30-49 % non-hemodynamically stenosis of right and left internal carotid artery Echocardiogram (01/26/18): Normal LV systolic function. Diastolic dysfunction. Dilated LA. Mild AR. Thickened and sclerosed AV F/U for bubble study Medications/Management: -ASA 81mg PO daily - Plavix 75mg PO daily - Crestor 40mg PO HS All plans and management discussed with Dr. Mccall Status: Acute <Dilan Mccall - Last Filed: 01/31/18 23:04> Objective - Vital Signs/Intake and Output Vital Signs (last 24 hours): Temp Pulse Resp BP Pulse Ox 98.2 F 89 19 168/89 H 100 01/31/18 16:00 01/31/18 18:00 01/31/18 02:00 01/31/18 04:00 01/31/18 04:00 Intake and Output: 01/31/18 02/01/18 18:59 06:59 Intake Total 980 Output Total 900 Balance 80 - Medications Medications: Current Medications Amlodipine Besylate (Norvasc) 10 mg PO DAILY [facility] Last Admin: 01/31/18 09:43 Dose: 10 mg Aspirin (Ecotrin) 81 mg PO DAILY [facility] Last Admin: 01/31/18 09:43 Dose: 81 mg Clopidogrel Bisulfate (Plavix) 75 mg PO DAILY [facility] Last Admin: 01/31/18 09:43 Dose: 75 mg Dextrose (Dextrose 50% Inj) 0 ml IV STAT PRN; Protocol PRN Reason: Hypoglycemia Protocol Dextrose (Glutose 15) 0 gm PO ONCE PRN; Protocol PRN Reason: Hypoglycemia Protocol Famotidine (Pepcid) 20 mg PO BID [facility] Last Admin: 01/31/18 18:19 Dose: 20 mg Glucagon (Glucagen Diagnostic Kit) 0 mg IM STAT PRN; Protocol PRN Reason: Hypoglycemia Protocol Heparin Sodium (Porcine) (Heparin) 5,000 units SC Q12 [facility] Last Admin: 01/31/18 21:55 Dose: 5,000 units Insulin Aspart (Novolog) 0 unit SC ACHS [facility] PRN Reason: Protocol Last Admin: 01/31/18 21:57 Dose: Not Given Losartan Potassium (Cozaar) 25 mg PO DAILY [facility] Last Admin: 01/31/18 09:43 Dose: 25 mg Rosuvastatin Calcium (Crestor) 40 mg PO HS [facility] Last Admin: 01/31/18 21:55 Dose: 40 mg - Labs Labs: 01/30/18 06:07 01/30/18 06:07 PT 13.9 SECONDS (9.7-12.2) H 01/26/18 15:43 INR 1.3 01/26/18 15:43 APTT 41 SECONDS (21-34) H 01/26/18 15:43 Assessment and Plan - Assessment and Plan (Free Text) Assessment: Patient seen and evaluated personally by me Gila recinos/w the medical support assistant and as documented
--- NOTE | 2018-01-31 20:35 | CP.PCM.PN ---
Subjective - Date & Time of Evaluation Date of Evaluation: 01/31/18 Time of Evaluation: 17:00 - Subjective Subjective: Mr. Horn was seen and examined today at bedside in the ICU. He was sitting up in his chair and stated that he was feeling better. His left side weakness is improving. Objective - Vital Signs/Intake and Output Vital Signs (last 24 hours): Temp Pulse Resp BP Pulse Ox 98.2 F 89 19 168/89 H 100 01/31/18 16:00 01/31/18 18:00 01/31/18 02:00 01/31/18 04:00 01/31/18 04:00 Intake and Output: 01/31/18 02/01/18 18:59 06:59 Intake Total 980 Output Total 900 Balance 80 - Medications Medications: Current Medications Amlodipine Besylate (Norvasc) 10 mg PO DAILY [facility] Last Admin: 01/31/18 09:43 Dose: 10 mg Aspirin (Ecotrin) 81 mg PO DAILY [facility] Last Admin: 01/31/18 09:43 Dose: 81 mg Clopidogrel Bisulfate (Plavix) 75 mg PO DAILY [facility] Last Admin: 01/31/18 09:43 Dose: 75 mg Dextrose (Dextrose 50% Inj) 0 ml IV STAT PRN; Protocol PRN Reason: Hypoglycemia Protocol Dextrose (Glutose 15) 0 gm PO ONCE PRN; Protocol PRN Reason: Hypoglycemia Protocol Famotidine (Pepcid) 20 mg PO BID [facility] Last Admin: 01/31/18 18:19 Dose: 20 mg Glucagon (Glucagen Diagnostic Kit) 0 mg IM STAT PRN; Protocol PRN Reason: Hypoglycemia Protocol Heparin Sodium (Porcine) (Heparin) 5,000 units SC Q12 [facility] Last Admin: 01/31/18 09:43 Dose: 5,000 units Insulin Aspart (Novolog) 0 unit SC ACHS [facility] PRN Reason: Protocol Last Admin: 01/31/18 16:40 Dose: 2 units Losartan Potassium (Cozaar) 25 mg PO DAILY [facility] Last Admin: 01/31/18 09:43 Dose: 25 mg Rosuvastatin Calcium (Crestor) 40 mg PO HS [facility] Last Admin: 01/30/18 21:43 Dose: 40 mg - Labs Labs: 01/30/18 06:07 01/30/18 06:07 PT 13.9 SECONDS (9.7-12.2) H 01/26/18 15:43 INR 1.3 01/26/18 15:43 APTT 41 SECONDS (21-34) H 01/26/18 15:43 - Neurological Exam Neurological Exam: Abnormal Gait, Alert, Awake, CN II-XII Intact, Oriented x3 Neuro motor strength exam: Left Upper Extremity: 4, Right Upper Extremity: 5, Left Lower Extremity: 4, Right Lower Extremity: 5 Additional comments: NIHSS = 5 Assessment and Plan (1) CVA (cerebral vascular accident) Assessment & Plan: Continue current management and PT/OT. Neurology will follow. Status: Acute
[2018-02-01 06:12] LABS: BASO % 0.7 % (0.0-2.0); EOS # 0.1 K/uL (0.0-0.7); HEMOGLOBIN 11.1 g/dL (12.0-18.0); LYMPH # 1.3 K/uL (1.0-4.3); LYMPH % 21.5 % (20.0-40.0); MEAN CELL VOLUME 74.4 fL (80.0-94.0); MEAN CORPUSCULAR HEMOGLOBIN 24.6 pg (27.0-31.0); MEAN PLATELET VOLUME 8.8 fL (7.2-11.7); MONO # 0.7 K/uL (0.0-0.8); MONO % 12.6 % (0.0-10.0); NEUT # 3.7 K/uL (1.8-7.0); NEUT % 63.2 % (50.0-75.0); RBC 4.51 Mil/uL (4.40-5.90); RED CELL DISTRIBUTION WIDTH 16.3 % (11.5-14.5); WHITE BLOOD COUNT 5.9 K/uL (4.8-10.8)
[2018-02-01 06:34] LABS: ALB/GLOB RATIO 1.3 (1.0-2.1); ALBUMIN 3.9 g/dL (3.5-5.0); ALT/SGPT 24 U/L (21-72); AST/SGOT 13 U/L (17-59); BLOOD UREA NITROGEN 18 mg/dL (9-20); CALCIUM 9.4 mg/dl (8.6-10.4); GFR NON-AFRICAN AMERICAN > 60
[2018-02-01] MEDS: (Novolog) Insulin Aspart, Recombinant 100 u/ml 10 ml vial SC SCH ×4 (07:30→22:42)
--- NOTE | 2018-02-01 18:01 | CP.PCM.PN ---
<Lb Stubbs E - Last Filed: 02/01/18 18:08> Subjective - Date & Time of Evaluation Date of Evaluation: 02/01/18 Time of Evaluation: 10:05 - Subjective Subjective: Cardiology progress note ( Dr. Mccall's service) Patient was seen and examined at bedside. Patient reports that he is doing well with improving symptoms. Patient denies any cardiac symptoms. Patient is doing well. Patient denies chest pain, palpitations, SOB, dizziness, headache, numbness/tingling. Patient is tolerating diet and continues to work with physical therapy. Objective - Vital Signs/Intake and Output Vital Signs (last 24 hours): Temp Pulse Resp BP Pulse Ox 98.0 F 104 H 20 178/93 H 99 02/01/18 15:00 02/01/18 16:00 02/01/18 15:00 02/01/18 15:00 02/01/18 15:00 Intake and Output: 02/01/18 02/01/18 06:59 18:59 Intake Total 490 Output Total 850 Balance -360 - Medications Medications: Current Medications Amlodipine Besylate (Norvasc) 10 mg PO DAILY [facility] Last Admin: 02/01/18 09:11 Dose: 10 mg Aspirin (Ecotrin) 81 mg PO DAILY [facility] Last Admin: 02/01/18 09:11 Dose: 81 mg Clopidogrel Bisulfate (Plavix) 75 mg PO DAILY [facility] Last Admin: 02/01/18 09:11 Dose: 75 mg Dextrose (Dextrose 50% Inj) 0 ml IV STAT PRN; Protocol PRN Reason: Hypoglycemia Protocol Dextrose (Glutose 15) 0 gm PO ONCE PRN; Protocol PRN Reason: Hypoglycemia Protocol Famotidine (Pepcid) 20 mg PO BID [facility] Last Admin: 02/01/18 17:36 Dose: 20 mg Glucagon (Glucagen Diagnostic Kit) 0 mg IM STAT PRN; Protocol PRN Reason: Hypoglycemia Protocol Heparin Sodium (Porcine) (Heparin) 5,000 units SC Q12 [facility] Last Admin: 02/01/18 09:11 Dose: 5,000 units Insulin Aspart (Novolog) 0 unit SC ACHS [facility] PRN Reason: Protocol Last Admin: 02/01/18 17:36 Dose: 2 units Losartan Potassium (Cozaar) 25 mg PO DAILY [facility] Last Admin: 02/01/18 09:11 Dose: 25 mg Rosuvastatin Calcium (Crestor) 40 mg PO HS [facility] Last Admin: 01/31/18 21:55 Dose: 40 mg - Labs Labs: 02/01/18 05:58 02/01/18 05:58 PT 13.9 SECONDS (9.7-12.2) H 01/26/18 15:43 INR 1.3 01/26/18 15:43 APTT 41 SECONDS (21-34) H 01/26/18 15:43 - Constitutional Appears: Well, No Acute Distress - Head Exam Head Exam: ATRAUMATIC, NORMAL INSPECTION - Eye Exam Eye Exam: EOMI, Normal appearance - ENT Exam ENT Exam: Mucous Membranes Moist - Respiratory Exam Respiratory Exam: Clear to Ausculation Bilateral, NORMAL BREATHING PATTERN. absent: Decreased Breath Sounds, Rhonchi, Wheezes, Respiratory Distress - Cardiovascular Exam Cardiovascular Exam: REGULAR RHYTHM, +S1, +S2. absent: Murmur - GI/Abdominal Exam GI & Abdominal Exam: Soft, Normal Bowel Sounds. absent: Firm, Guarding, Rigid, Tenderness - Extremities Exam Extremities Exam: Normal Inspection. absent: Calf Tenderness, Pedal Edema - Neurological Exam Neurological Exam: Alert, Awake, Oriented x3 Neuro motor strength exam: Left Upper Extremity: 3, Right Upper Extremity: 5, Left Lower Extremity: 3, Right Lower Extremity: 5 - Psychiatric Exam Psychiatric exam: Normal Affect - Skin Skin Exam: Normal Color Assessment and Plan (1) CVA (cerebral vascular accident) Assessment & Plan: 73 M with PMHx of DM, HTN, and HLD presents to ED complaining of left sided weakness and slurred speech. Code stroke called and patient was candidate for TPA. Patient was given TPA. Cardiology consult for further evaluation of etiology of CVA: Lipid Panel: - TGL: 84, Chol: 140, LDL: 77 and HDL: 37 - HgbA1C: 5.7 Imaging: Head CT (01/26/18): No intracranial hemorrhage or mass effect. Mild cerebral atrophy. Probable minimal microvascular ischemic changes as above. Head/ Neck CTA (01/26/18): Asymmetric approximately 70-80% luminal narrowing of the right supraclinoid internal carotid segment. 2. 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 3. Coarse atherosclerotic plaques in the proximal internal carotid artery is in the neck, worse on the right with approximately 50 % luminal narrowing. No evidence of hemodynamically significant stenosis. 4. Patent bilateral cervical segments of the l vertebral arteries. The right vertebral artery is hypoplastic, an anatomic variant. Head CT ( 01/27/18): Normal CT of the Head Brain MRI (01/27/18): No acute intracranial abnormality. Specifically, no evidence for acute infarction. Old infarctions in the right paramedian cong, right lateral cerebellar hemisphere right basal ganglia. Mild chronic microangiopathic changes and mild age-related global parenchymal volume loss. Suspect occlusion of the right proximal intracranial vertebral artery. Carotid doppler: 30-49 % non-hemodynamically stenosis of right and left internal carotid artery Echocardiogram (01/26/18): Normal LV systolic function. Diastolic dysfunction. Dilated LA. Mild AR. Thickened and sclerosed AV Bubble study: Negative Medications/Management: -ASA 81mg PO daily - Plavix 75mg PO daily - Crestor 40mg PO HS Status: Acute (2) Hypertension Assessment & Plan: Norvasc 10mg PO daily Cozaar 25mg PO daily Status: Acute (3) Prophylactic measure Assessment & Plan: GI: Pepcid 20mg PO BID DVT: Heparin 5,000 units SC Q12H All plans and management discussed with Dr. Mccall Status: Acute <Dilan Mccall - Last Filed: 02/01/18 20:30> Objective - Vital Signs/Intake and Output Vital Signs (last 24 hours): Temp Pulse Resp BP Pulse Ox 98.0 F 104 H 20 178/93 H 99 02/01/18 15:00 02/01/18 16:00 02/01/18 15:00 02/01/18 15:00 02/01/18 15:00 Intake and Output: 02/01/18 02/02/18 18:59 06:59 Intake Total 490 Output Total 850 Balance -360 - Medications Medications: Current Medications Amlodipine Besylate (Norvasc) 10 mg PO DAILY [facility] Last Admin: 02/01/18 09:11 Dose: 10 mg Aspirin (Ecotrin) 81 mg PO DAILY [facility] Last Admin: 02/01/18 09:11 Dose: 81 mg Clopidogrel Bisulfate (Plavix) 75 mg PO DAILY [facility] Last Admin: 02/01/18 09:11 Dose: 75 mg Dextrose (Dextrose 50% Inj) 0 ml IV STAT PRN; Protocol PRN Reason: Hypoglycemia Protocol Dextrose (Glutose 15) 0 gm PO ONCE PRN; Protocol PRN Reason: Hypoglycemia Protocol Famotidine (Pepcid) 20 mg PO BID [facility] Last Admin: 02/01/18 17:36 Dose: 20 mg Glucagon (Glucagen Diagnostic Kit) 0 mg IM STAT PRN; Protocol PRN Reason: Hypoglycemia Protocol Heparin Sodium (Porcine) (Heparin) 5,000 units SC Q12 [facility] Last Admin: 02/01/18 09:11 Dose: 5,000 units Insulin Aspart (Novolog) 0 unit SC ACHS [facility] PRN Reason: Protocol Last Admin: 02/01/18 17:36 Dose: 2 units Losartan Potassium (Cozaar) 25 mg PO DAILY [facility] Last Admin: 02/01/18 09:11 Dose: 25 mg Rosuvastatin Calcium (Crestor) 40 mg PO HS [facility] Last Admin: 01/31/18 21:55 Dose: 40 mg - Labs Labs: 02/01/18 05:58 02/01/18 05:58 PT 13.9 SECONDS (9.7-12.2) H 01/26/18 15:43 INR 1.3 01/26/18 15:43 APTT 41 SECONDS (21-34) H 01/26/18 15:43 Assessment and Plan - Assessment and Plan (Free Text) Assessment: Patient seen and evaluated personally by ks Plan of care d/w the medical referral coordinator and as docuemented
--- NOTE | 2018-02-01 22:16 | CARD ---
APPROVED REPORT Date of service: 01/31/2018 EXAM: LIMITED Two-dimensional echocardiogram with bubble. Other Information Quality : GoodRhythm : INDICATION CVA/TIA PFO VS ASD Mitral Valve E/A ratio0.0 TDI E/Lateral E'0.0E/Medial E'0.0 LEFT VENTRICLE The left ventricle is normal size. There is normal left ventricular wall thickness. Left ventricle systolic function is normal. The Ejection Fraction is >70%. Bubble study revealed NO evidence of ventricular septal defect or ASD with right to left shunt flow. RIGHT VENTRICLE The right ventricle is normal size. There is normal right ventricular wall thickness. The right ventricular systolic function is normal. ATRIA The left atrium size is normal. The right atrium size is normal. The interatrial septum is intact with no evidence for an atrial septal defect. <Conclusion> Left ventricle systolic function is normal. The Ejection Fraction is >70%. Bubble study revealed NO evidence of ventricular septal defect or ASD with right to left shunt flow.
[2018-02-02] MEDS: (Novolog) Insulin Aspart, Recombinant 100 u/ml 10 ml vial SC SCH ×4 (08:05→21:28)
--- NOTE | 2018-02-02 11:54 | IP.NPCORE ---
Stroke Core Measure - CQM - Stroke Antithrombotic Prescribed: Yes Anticoagulation Prescribed for Atrial Flutter, Atrial Fibrillation and History of:: Not Applicable Statin prescribed: Yes
--- NOTE | 2018-02-02 11:56 | CP.PCM.PN ---
Subjective - Date & Time of Evaluation Date of Evaluation: 02/02/18 Time of Evaluation: 11:20 - Subjective Subjective: Patient seen today, denies nay chest pain, sob, abdominal pain, N/V headache, blurred vision , c/o left side weakness states improving Objective - Vital Signs/Intake and Output Vital Signs (last 24 hours): Temp Pulse Resp BP Pulse Ox 97.7 F 86 20 196/92 H 100 02/02/18 07:00 02/02/18 07:00 02/02/18 07:00 02/02/18 07:00 02/02/18 07:00 Intake and Output: 02/02/18 02/02/18 06:59 18:59 Intake Total 480 Balance 480 - Medications Medications: Current Medications Amlodipine Besylate (Norvasc) 10 mg PO DAILY [facility] Last Admin: 02/02/18 09:52 Dose: 10 mg Aspirin (Ecotrin) 81 mg PO DAILY [facility] Last Admin: 02/02/18 09:52 Dose: 81 mg Clopidogrel Bisulfate (Plavix) 75 mg PO DAILY [facility] Last Admin: 02/02/18 09:52 Dose: 75 mg Dextrose (Dextrose 50% Inj) 0 ml IV STAT PRN; Protocol PRN Reason: Hypoglycemia Protocol Dextrose (Glutose 15) 0 gm PO ONCE PRN; Protocol PRN Reason: Hypoglycemia Protocol Famotidine (Pepcid) 20 mg PO BID [facility] Last Admin: 02/02/18 09:52 Dose: 20 mg Glucagon (Glucagen Diagnostic Kit) 0 mg IM STAT PRN; Protocol PRN Reason: Hypoglycemia Protocol Heparin Sodium (Porcine) (Heparin) 5,000 units SC Q12 [facility] Last Admin: 02/02/18 09:52 Dose: 5,000 units Insulin Aspart (Novolog) 0 unit SC ACHS ASHLEE PRN Reason: Protocol Last Admin: 02/02/18 08:05 Dose: Not Given Losartan Potassium (Cozaar) 25 mg PO DAILY [facility] Last Admin: 02/02/18 09:52 Dose: 25 mg Rosuvastatin Calcium (Crestor) 40 mg PO HS [facility] Last Admin: 02/01/18 21:24 Dose: 40 mg - Labs Labs: 02/01/18 05:58 02/01/18 05:58 PT 13.9 SECONDS (9.7-12.2) H 01/26/18 15:43 INR 1.3 01/26/18 15:43 APTT 41 SECONDS (21-34) H 01/26/18 15:43 Assessment and Plan - Assessment and Plan (Free Text) Assessment: A/P 73 M with PMHx of DM, HTN, and HLD presents to ED complaining of left sided weakness and slurred speech and admitted with acute CVA s,/p tpa Patient accepted at acute rehab at [facility] D/W Dr. Buchanan, cleared fro discharge to acute rehab discharge plan discussed with patient who understands and agrees with plan
[2018-02-02 16:20] VITALS: BP 151/85; PULSE 78; RESP 20; TEMP 98.5; O2SAT 97
--- NOTE | 2018-02-02 17:03 | VASCLAB ---
Date of service: 02/01/2018 PROCEDURE: Lower Extremity Venous Duplex Exam. HISTORY: Swelling, r/o DVT PRIORS: None. TECHNIQUE: Bilateral common femoral, femoral, popliteal and posterior tibial, peroneal and great saphenous veins were evaluated. Flow was assessed with color Doppler, compressibility, assessment of phasic flow and augmentation response. Report prepared by JULIO C Avery FINDINGS: RIGHT: 1. Common Femoral Vein: 1.1. Compressibility - Fully compressible: Thrombus - None : Flow - Phasic: Augmentation -Normal: Reflux - None. 2. Femoral Vein: 2.1. Compressibility - Fully compressible: Thrombus - None : Flow - Phasic: Augmentation -Normal: Reflux - Mild. 3. Popliteal Vein: 3.1. Compressibility - Fully compressible: Thrombus - None : Flow - Phasic: Augmentation -Normal: Reflux - None. 4. Posterior Tibial Vein: 4.1. Compressibility - Fully compressible: Thrombus - None: Flow - Phasic: Augmentation -Normal: Reflux - None. 5. Peroneal Vein: 5.1. Compressibility - Fully compressible: Thrombus - None: Flow - Phasic: Augmentation -Normal: Reflux - None. 6. Great Saphenous Vein: 6.1. Compressibility - Fully compressible: Thrombus - None: Flow - Phasic: Augmentation - Normal: Reflux - None. LEFT: 1. Common Femoral Vein: 1.1. Compressibility - Fully compressible: Thrombus - None: Flow - Phasic: Augmentation -Normal: Reflux - None. 2. Femoral Vein: 2.1. Compressibility - Fully compressible: Thrombus - None: Flow - Phasic: Augmentation -Normal: Reflux - None. 3. Popliteal Vein: 3.1. Compressibility - Fully compressible: Thrombus - None : Flow - Phasic: Augmentation -Normal: Reflux - None. 4. Posterior Tibial Vein: 4.1. Compressibility - Fully compressible: Thrombus - None: Flow - Phasic: Augmentation -Normal: Reflux - None. 5. Peroneal Vein: 5.1. Compressibility - Fully compressible: Thrombus - None: Flow - Phasic: Augmentation -Normal: Reflux - None. 6. Great Saphenous Vein: 6.1. Compressibility - Fully compressible: Thrombus - None: Flow - Phasic: Augmentation - Normal: Reflux - None. OTHER FINDINGS: Right: Subcutaneous edema. Left: Subcutaneous edema. IMPRESSION: Right: No evidence of deep or superficial vein thrombosis of the right lower extremity. Venous reflux in the distal femoral vein. Left: No evidence of deep or superficial vein thrombosis of the left lower extremity. Normal valve function noted of the left side.
--- NOTE | 2018-02-02 20:33 | CP.PCM.PN ---
Objective - Vital Signs/Intake and Output Vital Signs (last 24 hours): Temp Pulse Resp BP Pulse Ox 98.5 F 78 20 151/85 H 97 02/02/18 15:50 02/02/18 15:50 02/02/18 15:50 02/02/18 15:50 02/02/18 15:50 - Medications Medications: Current Medications Amlodipine Besylate (Norvasc) 10 mg PO DAILY [facility] Last Admin: 02/02/18 09:52 Dose: 10 mg Aspirin (Ecotrin) 81 mg PO DAILY [facility] Last Admin: 02/02/18 09:52 Dose: 81 mg Clopidogrel Bisulfate (Plavix) 75 mg PO DAILY [facility] Last Admin: 02/02/18 09:52 Dose: 75 mg Dextrose (Dextrose 50% Inj) 0 ml IV STAT PRN; Protocol PRN Reason: Hypoglycemia Protocol Dextrose (Glutose 15) 0 gm PO ONCE PRN; Protocol PRN Reason: Hypoglycemia Protocol Famotidine (Pepcid) 20 mg PO BID [facility] Last Admin: 02/02/18 17:41 Dose: 20 mg Glucagon (Glucagen Diagnostic Kit) 0 mg IM STAT PRN; Protocol PRN Reason: Hypoglycemia Protocol Heparin Sodium (Porcine) (Heparin) 5,000 units SC Q12 [facility] Last Admin: 02/02/18 09:52 Dose: 5,000 units Insulin Aspart (Novolog) 0 unit SC ACHS ASHLEE PRN Reason: Protocol Last Admin: 02/02/18 17:41 Dose: Not Given Losartan Potassium (Cozaar) 25 mg PO DAILY [facility] Last Admin: 02/02/18 09:52 Dose: 25 mg Rosuvastatin Calcium (Crestor) 40 mg PO HS [facility] Last Admin: 02/01/18 21:24 Dose: 40 mg - Labs Labs: 02/01/18 05:58 02/01/18 05:58 PT 13.9 SECONDS (9.7-12.2) H 01/26/18 15:43 INR 1.3 01/26/18 15:43 APTT 41 SECONDS (21-34) H 01/26/18 15:43 Assessment and Plan (1) Hypertension Status: Acute (2) Hypercholesteremia Status: Acute (3) Atherosclerosis Status: Acute (4) CVA (cerebral vascular accident) Status: Acute
--- NOTE | 2018-02-02 20:34 | CP.PCM.DIS ---
Provider - Provider Date of Admission: 01/26/18 16:30 Attending physician: Abdoul Buchanan MD Diagnosis - Discharge Diagnosis (1) Hypertension Status: Acute (2) Hypercholesteremia Status: Acute (3) Atherosclerosis Status: Acute (4) CVA (cerebral vascular accident) Status: Acute Hospital Course - Lab Results Lab Results: Micro Results 01/26/18 19:17 Nose MRSA Culture (Admit) - Final MRSA NOT DETECTED Most Recent Lab Values WBC 5.9 K/uL (4.8-10.8) 02/01/18 05:58 RBC 4.51 Mil/uL (4.40-5.90) 02/01/18 05:58 Hgb 11.1 g/dL (12.0-18.0) L 02/01/18 05:58 Hct 33.5 % (35.0-51.0) L 02/01/18 05:58 MCV 74.4 fL (80.0-94.0) L 02/01/18 05:58 MCH 24.6 pg (27.0-31.0) L 02/01/18 05:58 MCHC 33.0 g/dL (33.0-37.0) 02/01/18 05:58 RDW 16.3 % (11.5-14.5) H 02/01/18 05:58 Plt Count 257 K/uL (130-400) 02/01/18 05:58 MPV 8.8 fL (7.2-11.7) 02/01/18 05:58 Neut % (Auto) 63.2 % (50.0-75.0) 02/01/18 05:58 Lymph % (Auto) 21.5 % (20.0-40.0) 02/01/18 05:58 Dubois % (Auto) 12.6 % (0.0-10.0) H 02/01/18 05:58 Eos % (Auto) 2.0 % (0.0-4.0) 02/01/18 05:58 Baso % (Auto) 0.7 % (0.0-2.0) 02/01/18 05:58 Neut # (Auto) 3.7 K/uL (1.8-7.0) 02/01/18 05:58 Lymph # (Auto) 1.3 K/uL (1.0-4.3) 02/01/18 05:58 Dubois # (Auto) 0.7 K/uL (0.0-0.8) 02/01/18 05:58 Eos # (Auto) 0.1 K/uL (0.0-0.7) 02/01/18 05:58 Baso # (Auto) 0.0 K/uL (0.0-0.2) 02/01/18 05:58 PT 13.9 SECONDS (9.7-12.2) H 01/26/18 15:43 INR 1.3 01/26/18 15:43 APTT 41 SECONDS (21-34) H 01/26/18 15:43 Sodium 140 mmol/L (132-148) 02/01/18 05:58 Potassium 4.3 mmol/L (3.6-5.2) 02/01/18 05:58 Chloride 104 mmol/L (98-107) 02/01/18 05:58 Carbon Dioxide 26 mmol/L (22-30) 02/01/18 05:58 Anion Gap 15 (10-20) 02/01/18 05:58 BUN 18 mg/dL (9-20) 02/01/18 05:58 Creatinine 0.8 mg/dL (0.8-1.5) 02/01/18 05:58 Est GFR ( Amer) > 60 02/01/18 05:58 Est GFR (Non-Af Amer) > 60 02/01/18 05:58 POC Glucose (mg/dL) 272 mg/dL (65-110) H 02/02/18 11:09 Random Glucose 154 mg/dL (75-110) H 02/01/18 05:58 Hemoglobin A1c 5.7 % (4.2-6.5) 01/26/18 15:43 Calcium 9.4 mg/dl (8.6-10.4) 02/01/18 05:58 Phosphorus 3.3 mg/dL (2.5-4.5) 02/01/18 05:58 Magnesium 2.0 mg/dL (1.6-2.3) 02/01/18 05:58 Total Bilirubin 0.3 mg/dL (0.2-1.3) 02/01/18 05:58 AST 13 U/L (17-59) L 02/01/18 05:58 ALT 24 U/L (21-72) 02/01/18 05:58 Alkaline Phosphatase 104 U/L (38-126) 02/01/18 05:58 Troponin I 0.0140 ng/mL (0.00-0.120) 01/26/18 15:43 Total Protein 7.0 g/dL (6.3-8.3) 02/01/18 05:58 Albumin 3.9 g/dL (3.5-5.0) 02/01/18 05:58 Globulin 3.1 gm/dL (2.2-3.9) 02/01/18 05:58 Albumin/Globulin Ratio 1.3 (1.0-2.1) 02/01/18 05:58 Triglycerides 84 mg/dL (0-149) 01/26/18 15:43 Cholesterol 140 mg/dL (0-199) 01/26/18 15:43 LDL Cholesterol Direct 77 mg/dL (0-129) 01/26/18 15:43 HDL Cholesterol 37 mg/dL (30-70) 01/26/18 15:43 Blood Type O POSITIVE 01/26/18 15:43 Antibody Screen Negative 01/26/18 15:43 Discharge Exam - Head Exam Head Exam: ATRAUMATIC, NORMAL INSPECTION Discharge Plan - Follow Up Plan Condition: CRITICAL Disposition: HOME/ ROUTINE Instructions: Diabetes Exchange Diet, DASH Diet, High Blood Pressure (DC), Stroke (DC), Carbohydrate Counting Diet, Diabetes Diet Additional Instructions: Continue medication as per med. rec. Patient needs to f/u with Dr. Buchanan office after discharge ( f/u visit) Referrals: Rommel Fernandez MD [Staff Provider] - Abdoul Buchanan MD [Staff Provider] -
== END 2018-02-02 22:55 | disposition home or self-care (01) | DRG 65 ==
LOC: C.ER 15:29 → C.9I 16:30 → C.6T 02-01 09:25
PROVIDERS: ADMIT Internal Medicine; ATTEND Internal Medicine
DX: I63.9 Cerebral infarction, unspecified (principal); G81.94 Hemiplegia, unspecified affecting left nondominant side; L97.919 Non-pressure chronic ulcer of unspecified part of right lower leg with unspecified severity; E78.5 Hyperlipidemia, unspecified; I10 Essential (primary) hypertension; I25.10 Atherosclerotic heart disease of native coronary artery without angina pectoris; E11.69 Type 2 diabetes mellitus with other specified complication; E11.319 Type 2 diabetes mellitus with unspecified diabetic retinopathy without macular edema; E11.40 Type 2 diabetes mellitus with diabetic neuropathy, unspecified; R47.01 Aphasia; R29.810 Facial weakness; R29.707 NIHSS score 7; K21.9 Gastro-esophageal reflux disease without esophagitis; I67.2 Cerebral atherosclerosis; I65.29 Occlusion and stenosis of unspecified carotid artery; Z79.4 Long term (current) use of insulin